=== PATIENT | female | born 1990 | race Caucasian/White ===

== ENCOUNTER → 2020-06-25 13:30 | Outpatient (CLI) | payer OTHER, SELFPAY ==
[2020-06-11 13:01] VITALS: BMI 32.7
[2020-06-25 12:58] VITALS: BMI 33.0
--- NOTE | 2020-06-25 13:30 | US_ITS ---
STUDY: SECOND AND THIRD TRIMESTER OBSTETRICAL ULTRASOUND REASON FOR EXAM: Female, 29 years old growth LMP: 10/12/2019 TECHNIQUE: Transabdominal TECHNICAL QUALITY: Adequate. PRIOR ULTRASOUND: None. FINDINGS: There is a single intrauterine fetus. The fetus is in a cephalic presentation. There is demonstrated cardiac activity with a heart rate of 150 bpm. There is a normal amniotic fluid volume. The largest amniotic fluid pocket measures 4.7 cm. The amniotic fluid index (MIRI) is 4.9 cm. The placenta is anterior in location and is not low lying. There are Grade 3 placental changes. The cervix measures 3 cm in length. The adnexal regions are not visualized. BIOMETRY: BPD: 8.8 cm: 35 weeks, 4 days HC: 31.5 cm: 35 weeks, 2 days AC: 33.1 cm: 36 weeks, 6 days FL: 6.9 cm: 35 weeks, 4 days CI: 83% FL/BPD: 79% FL/HC: FL/AC: 21% HC/AC: 0.95 age by current US: 35 weeks, 3 days. ANNA by current US: 07/27/2020. Estimated weight: 2959 grams, +/- 444 grams, 49 %. Age by LMP: 36 weeks, 5 days. ANNA by LMP: 07/18/2020. US/OB Limited With Biometrics IMPRESSION: Single live intrauterine gestation with a mean gestational age of 35 weeks and 3 days. Electronically Signed: [place] Ravi MD at 14:41 EST , Service support ,
== END ==
PROVIDERS: Referring Provider Obstetrics & Gynecology; Visit Provider Obstetrics & Gynecology
DX: O26.849 Uterine size-date discrepancy, unspecified trimester (principal); Z3A.00 Weeks of gestation of pregnancy not specified
CPT/HCPCS: 76816; 87081

== ENCOUNTER → 2020-07-16 14:15 | Outpatient (CLI) | payer OTHER, SELFPAY ==
[2020-07-09 12:48] VITALS: BMI 33.5
[2020-07-16 13:04] VITALS: BMI 33.8
== END ==
PROVIDERS: Visit Provider Obstetrics & Gynecology
DX: Z34.80 Encounter for supervision of other normal pregnancy, unspecified trimester (principal)
CPT/HCPCS: 87635; C9803; U0002

== ENCOUNTER 2020-07-22 02:47 | Inpatient (IN) | payer OTHER, SELFPAY ==
[2020-07-16 13:04] VITALS: BMI 33.8
[2020-07-22] VITALS (55 sets, daily range): BP systolic 80–140; BP diastolic 51–87; PULSE 69–100; RESP 16; TEMP 36.2–37.7; O2SAT 92–97; BMI 34.9
[2020-07-22] MEDS: Lactated Ringers 1,000 ML 50 ML IV (03:05)
[2020-07-22] MEDS: Lactated Ringers 500 ML 999 ML IV ×2 (03:24→04:50)
[2020-07-22 03:25] LABS: Absolute Lymphocyte Count 2.95 X10^3/uL (0.83-4.51); Absolute Neutrophil Count 6.8 X10^3/uL (2.0-7.7); Basophil# 0.03 X10^3/uL; Basophil% 0.3 % (0-1); Eosinophil# 0.04 X10^3/uL; Eosinophils% 0.4 % (0-5); Hematocrit 36.9 % (37-47); Hemoglobin 12.5 g/dL (12.0-15.0); Lymphocyte # 2.95 X10^3/ul (4.0); Lymphocyte % 27.7 % (19-41); Mean Corp Hgb Conc 33.9 g/dL (32-36); Mean Corpuscular Hgb 30.7 pg (27.0-32.0); Mean Corpuscular Volume 90.7 fL (81-99); Mean Platelet Vol. 9.6 fl (6.2-12.0); Monocyte# 0.81 X10^3/uL; Monocyte% 7.6 % (0-10); NRBC Flagged by Analyzer 0 % (0-5); Neutrophil # 6.76 X10^3/uL (2.7-7.7); Neutrophil % 63.3 % (47-70); Platelet Count 269 K/mm3 (150-450); RBC Distribution Width CV 13.2 % (11.6-14.6); RBC Distribution Width SD 43.8 fl (35.1-43.9); Red Blood Count 4.07 M/mm3 (4.2-5.4); White Blood Count 10.7 K/mm3 (4.4-11.0)
[2020-07-22] MEDS: fentaNYL-bupivacaine (epidural) 100 ML BAG EPIDURAL ×2 (04:29→08:39)
[2020-07-22] MEDS: 0.9% Saline Lock 10 ML Syringe IV ×2 (05:27→16:00)
[2020-07-22] MEDS: Ondansetron 4 MG/2 ML Vial IV ×2 (05:27→12:23)
--- NOTE | 2020-07-22 08:19 | PCM.HPOB.BLA ---
- Problem List (1) Active labor Status: Acute (2) 36 weeks gestation of Status: Acute Comment: electronic covid test 06/23/20- NEGATIVE (3) Current boyer with history of congenital heart disease in prior child, antepartum Status: Acute Comment: h/o hypoplastic left heart- had D&E at 18 weeks; echo done 03/16/2020- normal (4) History of urine culture Status: Acute Comment: done 12/12/19 (5) Influenza vaccination given Status: Acute Comment: 02/17/2020 (6) Needs PAP Status: Acute Comment: PP (7) Normal glucose level Status: Acute Comment: GCT done 03/29/20 value 101 (8) Status: Acute Qualifiers: Comment: Normal- NT; FTS results low risk specifically DSR after screening is 1 in >10,000 and T18/13 risk after screening 1 in >10,000. (9) Supervision of high risk , antepartum Status: Acute Comment: ANNA: 07/18/20 girl Regina Spouse: Hermelindo History and Physical Date of Admission: 07/22/20 Intake Vital Signs 07/16/20 Height 5 ft 2 in 07/16/20 Weight: 185 lb 07/16/20 BMI 33.8 07/16/20 BP 120/82 H Intake Visit Reasons: 39WK OB Chief Complaint: est ob [employer] Hel[employer] Required: No Is patient in pain?: No Allergies sulfamethoxazole [From Bactrim] Allergy (Intermediate, Verified 07/16/20 13:05) Hives trimethoprim [From Bactrim] Allergy (Intermediate, Verified 07/16/20 13:05) Hives Medications multivitamin no.47-iron fum 27 mg-folate no.1 1 mg-dha 300 mg capsule cap PO 04/07/20 [History Confirmed 07/16/20] Last Menstral Period: 10/12/19 Zika: Zika virus screening: Negative : No PFSH PFSH Surgical History H/O reconstruction of anterior cruciate ligament tear (Resolved ~2007) H/O wisdom tooth extraction (Resolved ~2008) Family History Grandfather Cancer Bone Heart disease Myocardial infarction Brother ADHD Mother Narcolepsy Grandmother COPD (chronic obstructive pulmonary disease) Social History (Updated 07/16/20 @ 15:[address] Mell Blackmon MD) Smoking Status: Never smoker alcohol intake: current alcohol intake frequency: holidays/special occasions only details: not while substance use type: does not use additional social history: - Hermelindo Pregancy History 2 Elective abortions 1 Hx Para Spontaneous abortions Hx # Term Pregnancies Ectopic pregnancies Hx # Pregnancies Multiple births # of living children Past Pregnancies Del. 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 OB Visit ANNA Calculator Estimated Delivery Date Method Current WG Current Estimate 07/18/20 LMP (Certain) 39w 5d Other Estimates 07/18/20 Manual 39w 5d Expected Delivery Route/Plan Labor Preferences CB/BF classes: declines labor support person: Hermelindo labor intervention preferences: no preference pain management options preferred: epidural cut cord/dad catch: yes : yes PP control planned: discussed possible routes of delivery and associated risks: discussed possible delivery modalities and possible indications for each including R/B/A of , VAVD, and CS. questions answered. special requests: [] Specific Issue/Plans flu vaccine: given in [facility] tdap vaccine: given 04/28 rhogam: na LARC form signed: 05/14 movement and labor precautions reviewed. Problem list reviewed and updated with the most current plan of care details and appropriate orders placed. Relevant counseling for the gestational age provided. 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 [employer]. His family is here that's why they moved here to [place]. no vb lof good fm no regular ctx, has had echo and it's normal. nl cbc gct at 28 weeks per patient. 05/14/20 30w 5d 171 lb 4 oz 124/72 145 30 GP - no LOF, VB, DFM, ctx. LARC form signed today. 05/28/20 32w 5d 124/70 Negative Negative 145 34 SM- no vb lof good fm no regular ctx 06/11/20 34w 5d 179 lb 120/78 Negative Negative 145 36 GP - no LOF, VB, DFM, regular ctx. going to be out of town for next 2 weeks - has contingency plan in case goes into labor. Measuring 2 weeks ahead. Plan growth US. 06/25/20 36w 5d 181 lb 138/88 Negative Negative 130 37 Cephalic 1 20 -4 SM- no vb lof good fm no regular ctx 07/02/20 37w 5d 185 lb 4 oz 138/82 Negative Negative 125 38 Cephalic 1 60 -2 GP - no LOF, VB, DFM, ctx. Denies complaints. 07/09/20 38w 5d 183 lb 6 oz 132/80 Negative Negative 140 39 Cephalic 3 70 -2 GP - no LOF, VB, DFM, ctx. Scheduled for COVID vaccine next week. Membranes swept today. 07/16/20 39w 5d 185 lb 120/82 140 40 Cephalic 3 0 -2 SM- no vb lof good fm no regular ctx discussed IOL with pitocin Diagnostics Diagnostics Details: HIV: Urine Culture: Sequential Screen: NIPT Screen: ROS Const Reports system reviewed and no additional complaints, except as docu Card Reports system reviewed and no additional complaints, except as docu Resp Reports system reviewed and no additional complaints, except as docu GI Reports system reviewed and no additional complaints, except as docu, Reports nausea Reports system reviewed and no additional complaints, except as docu Musc Reports system reviewed and no additional complaints, except as docu Exam Const General: cooperative, healthy appearing, comfortable, anxious [facility] Head: normal to inspection Nose: external nose normal Face and sinus: normal facial exam Neck Neck: normal visual inspection, full ROM, no lymphadenopathy Thyroid: thyroid normal Chest Chest palpation & inspection: normal inspection of the chest Resp Effort & Inspection: normal respiratory effort GI Inspection: normal to inspection Palpation: soft, other (gravid uterus) Other: infant vertex and appropriate size for gestational age Other: Cervical Exam: Extrem General: pedal edema Patient presents IAL, plan expectant management for , pitocin/AROM PRN if needed. Pain management: plans epidural. GBS negative. Management of any complications: none I have reviewed the [facility] and made any clinically relevant updates. UPDATE- I have seen the patient and performed any clinically relevant updates to the history and physical exam. Ines Fox MD
[2020-07-22] MEDS: Lactated Ringers 1,000 ML 200 ML IV ×2 (09:54)
[2020-07-22] MEDS: Oxytocin 30 units/NS 500 ml 30 UNITS/500 ML IV.SOLN 334 UNITS IV (13:31)
[2020-07-22] MEDS: Methylergonovine 0.2 MG/ML Ampul IM (13:37)
--- NOTE | 2020-07-22 15:09 | OP.PCM_ITS ---
Problem List (1) Active labor Status: Acute (2) 36 weeks gestation of Status: Acute Comment: electronic covid test 06/23/20- NEGATIVE (3) Current boyer with history of congenital heart disease in prior child, antepartum Status: Acute Comment: h/o hypoplastic left heart- had D&E at 18 weeks; echo done 03/16/2020- normal (4) History of urine culture Status: Acute Comment: done 12/12/19 (5) Influenza vaccination given Status: Acute Comment: 02/17/2020 (6) Needs PAP Status: Acute Comment: PP (7) Normal glucose level Status: Acute Comment: GCT done 03/29/20 value 101 (8) Status: Acute Qualifiers: Comment: Normal- NT; FTS results low risk specifically DSR after screening is 1 in >10,000 and T18/13 risk after screening 1 in >10,000. (9) Supervision of high risk , antepartum Status: Acute Comment: ANNA: 07/18/20 tiffanie Tapia Spouse: Hermelindo Vaginal Delivery Maternal Presentation: Active Labor 29yo at 40 weeks gestation admitted for active labor. Patient made cervical change to complete dilation without augmentation Amniotic Membrane Rupture Type: Artificial Amniotic Fluid Description: Clear Final ANNA: 07/18/20 Gestational age: 40 Weeks and 4 Days Date of Procedure: 07/22/20 Pre-Operative Diagnosis: Term , active labor Post-Operative Diagnosis: same Surgery/ Procedure Performed: Spontaneous Vaginal Delivery Type of Anesthesia: Epidural Description of Procedure: Patient began pushing and delivered the head in the ANA M presentation. The head was delivered atraumatically and no nuchal cord was noted. The anterior and posterior shoulders delivered without complication followed by the rest of the i nfant and the infant was placed on the maternal abdomen. Delayed cord clamping was employed for approximately 60 seconds. Cord was clamped and cut and gentle traction was applied to the cord and the placenta delivered spontaneously immediately following it was noted to be intact with three-vessel cord. The perineum and vagina were inspected and a midline second degree laceration was noted and repaired in the standard fashion using 3-0 vicryl rapide suture. Uterine atony was noted and improved with bimanual massage and methergine. EBL was 300 cc. Patient and infant tolerated delivery well. Presentation: Vertex, ANA M Placental Delivery Description: Spontaneous Placenta Disposition: [facility] Cord Vessel Description: 3 Vessels Cord Entanglement: None Estimated Blood Loss: 300 Infant A gender: Female (1 minute): 8 (5 minute): 9 Episiotomy Description: None Laceration: Left Mediolateral, Perineal Extension/lac, 2nd degree Medications given after delivery: IV Pitocin, IM Methergin Complications: None Multi Select Codes - Urinary/Genital Urinary/Genital CPT Codes: 10036 [facility]
--- NOTE | 2020-07-22 15:13 | DCINST_ITS ---
Discharge Diet: No Restrictions Discharge Activity: Return to Normal Activity, May not drive while taking narcotic pain medications., May Shower May resume sexual activity in: 4-6 weeks Additional Activity Instructions:: Nothing in the vagina for 4-6 weeks. You may return to work/school in 6 weeks. Call your doctor if your incision/area has: Continuous Slow Oozing, Sudden Increased Bleeding, Increased Pain/ Swelling, Increased Redness, Foul Smelling Discharge Additional Instructions: If you experience any of the following, contact your healthcare provider. * Bleeding that soaks a pad every hour for 2 hours * Fever 100.4 or higher * Unrelieved incision or abdominal pain * Swelling, redness, discharge or bleeding from your incision or episiotomy site * Your incision begins to separate * Problems urinating (including inability to urinate or burning while urinating). * Visual changes * Severe headache * Flu-like symptoms * Pain or redness in one of both of your breasts * Pain, warmth, tenderness or swelling in your legs, especially the calf area * Frequent nausea and vomiting * Symptoms of depression or anxiety If you experience any of the following, call 911 or go to the nearest Emergency Room. * Chest pain * Problems breathing * Seizure activity * Partial or complete paralysis of a body part, slurred speech, weakness or drooping of the face, or a sudden inability to walk or hold your balance Allergies/Adverse Reactions: Allergies sulfamethoxazole [From Bactrim] Allergy (Intermediate, Verified 07/22/20 00:56) Hives trimethoprim [From Bactrim] Allergy (Intermediate, Verified 07/22/20 00:56) Hives Medications to take at Discharge multivitamin no.47-iron fum 27 mg-folate no.1 1 mg-dha 300 mg capsule 1 cap PO DAILY 04/07/20 When: Call to make an appointment with your doctor in 6 weeks. If you had elevated Blood Pressure or 4th degree laceration you will need to be seen in 2 weeks. Primary Care Physician: Care Physician,No Primary [Primary Care Provider] - Test Results: Test results from this visit will be discussed in further detail at your follow- up appointment, if applicable.
[2020-07-22] MEDS: Naproxen 250 MG Tablet 500 MG PO (15:48)
[2020-07-22] MEDS: Senna/Docusate Sodium 1 Tablet PO (15:49)
[2020-07-22] MEDS: Acetaminophen 500 MG Tablet 1000 MG PO (23:14)
[2020-07-23] VITALS (8 sets, daily range): BP systolic 105–120; BP diastolic 62–66; PULSE 72–81; RESP 16; TEMP 36.2–36.6; O2SAT 97
[2020-07-23] MEDS: Naproxen 250 MG Tablet 500 MG PO ×2 (00:43→08:19)
--- NOTE | 2020-07-23 08:18 | PCM.PN.OB ---
Patient Problems: Active and Suspected Problems (Last Reviewed 07/16/20 @ 13:05 by Adelaide Alan) Active labor (Acute) 36 weeks gestation of (Acute) electronic covid test 06/23/20- NEGATIVE Needs PAP (Acute) PP History of urine culture (Acute) done 12/12/19 Normal glucose level (Acute) GCT done 03/29/20 value 101 Influenza vaccination given (Acute) 02/17/2020 Supervision of high risk , antepartum (Acute) ANNA: 07/18/20 girl Regina Spouse: Hermelindo (Acute) Normal- NT; FTS results low risk specifically DSR after screening is 1 in >10,000 and T18/13 risk after screening 1 in >10,000. Current boyer with history of congenital heart disease in prior child, antepartum (Acute ~07/2019) h/o hypoplastic left heart- had D&E at 18 weeks; echo done 03/16/2020- normal Subjective: Patient doing well without complaints. Tolerating PO. Ambulating and voiding without difficulty. Breast feeding well. Denies chest pain, shortness of breath, calf pain/swelling, fevers, chills, lightheadedness. - Physical Exam Vitals/I&O's: Vital Signs Temp Pulse Resp BP Pulse Ox 97.5 F L 73 16 105/62 97 07/23/20 08:15 07/23/20 08:15 07/23/20 08:15 07/23/20 08:15 07/23/20 08:15 Oxygen Delivery Method Room Air Weight: 185 lb 3.2 oz Body Mass Index (BMI) 34.9 Intake and Output for Last 24 Hours 07/21/20 07/22/20 07/23/20 23:59 23:59 23:59 Intake Total 4423.33 / 4423.33 Output Total 2775 / 2775 Balance 1648.33 / 1648.33 General: Alert, Oriented x3, Cooperative, No apparent distress, Well developed, Well nourished HEENT: Atraumatic, PERRLA, EOMI, Normocephalic Neck: Supple, No JVD Lungs: Normal air movement Cardiovascular: Regular rate Abdomen: Soft, Non Tender, Non-Distended, - - fundus firm Extremities: No edema, No Calf Tenderness Neurological: Cranial nerves II-XII grossly intact, Neuro grossly intact Psych/Mental Status: Normal Affect, Appropriate Current Medications Acetaminophen (Acetaminophen 500 Mg Tablet) 1,000 mg PO Q8H PRN PRN PRN Reason: Pain Score 1-3 Last Admin: 07/22/20 23:14 Dose: 1,000 mg Documented by: Bisacodyl (Bisacodyl 10 Mg Suppository) 10 mg RC UD PRN PRN Reason: If no BM Dibucaine (Dibucaine 30 Gm Tube) 1 applic TOPICAL TID PRN PRN; Protocol PRN Reason: Discomfort Hydrocortisone (Hydrocortisone 2.5% Crm) 1 applic TOPICAL TID PRN PRN; Protocol PRN Reason: Discomfort Methylergonovine Maleate (Methylergonovine 0.2 Mg/Ml Ampul) 0.2 mg IM X1 PRN PRN Reason: Excess bleeding/uterine atony Last Admin: 07/22/20 13:37 Dose: 0.2 mg Documented by: Naproxen (Naproxen 250 Mg Tablet) 500 mg PO Q8H PRN PRN PRN Reason: Pain Score 1-3 Last Admin: 07/23/20 00:43 Dose: 500 mg Documented by: Ondansetron HCl (Ondansetron 4 Mg/2 Ml Vial) 4 mg IV Q4H PRN PRN PRN Reason: Nausea Oxycodone HCl (Oxycodone 5 Mg Tablet) 5 - 10 mg PO Q4H PRN PRN PRN Reason: Pain Score 4-10 Senna/Docusate Sodium (Senna/Docusate Sodium 1 Tablet) 1 - 2 tablet PO DAILY PRN PRN PRN Reason: Constipation Last Admin: 07/22/20 15:49 Dose: 2 tablet Documented by: Simethicone (Simethicone 80 Mg Tablet) 80 mg PO PCHS PRN PRN Reason: Indigestion/Stomach pain Sodium Chloride (0.9% Saline Lock 10 Ml Syringe) 5 - 15 ml IV UD PRN PRN Reason: SALINE FLUSH Last Admin: 07/22/20 16:00 Dose: 10 ml Documented by: Medical Necessity - Tobacco Use Smoking Status: Never smoker Assessment/Plan All Active Problems (Last Reviewed 07/16/20 @ 13:05 by Adelaide Alan) Active labor (Acute) 36 weeks gestation of (Acute) Needs PAP (Acute) History of urine culture (Acute) Normal glucose level (Acute) Influenza vaccination given (Acute) Supervision of high risk , antepartum (Acute) (Acute) Current boyer with history of congenital heart disease in prior child, antepartum (Acute ~07/2019) s/p PPD #1 1. routine post delivery care 2. breast feeding- support given 3. rh positive 4. rubella immune
[2020-07-23] MEDS: Senna/Docusate Sodium 1 Tablet PO (08:20)
[2020-07-23] MEDS: Acetaminophen 500 MG Tablet 1000 MG PO (13:55)
== END 2020-07-23 16:05 | disposition home or self-care (01) | DRG 807 ==
LOC: OBT 02:49 → WP 02:49
PROVIDERS: Admitting Provider Obstetrics & Gynecology; Referring Provider Obstetrics & Gynecology; Visit Provider Obstetrics & Gynecology
DX: O70.1 Second degree perineal laceration during delivery (principal); O75.89 Other specified complications of labor and delivery; Z3A.40 40 weeks gestation of pregnancy; Z37.0 Single live birth
CPT/HCPCS: 59025; 59050; 85025; 86850; 86900; 86901; 99218; J7120; A4216; G0378; J2405

== ENCOUNTER → 2020-09-03 15:30 | Outpatient (CLI) | payer OTHER, SELFPAY ==
[2020-09-03 13:57] VITALS: BMI 34.9
[2020-09-10 20:20] LABS: HPV Reflexed? NOT INDICATED
== END ==
PROVIDERS: Referring Provider Obstetrics & Gynecology; Visit Provider Obstetrics & Gynecology
DX: Z12.4 Encounter for screening for malignant neoplasm of cervix (principal)
CPT/HCPCS: 88175; G0145

== ENCOUNTER 2021-05-24 16:32 | Outpatient (CLI) | payer OTHER, SELFPAY ==
[2021-05-24 18:35] LABS: Amphetamine Urine VISTA NEGATIVE (<1000 ng/mL); Barbiturate Urine VISTA NEGATIVE (< 200 ng/mL); Benzodiazepine Urine VISTA NEGATIVE (< 200 ng/mL); Cocaine Urine VISTA NEGATIVE (< 300 ng/mL); Ecstacy Urine VISTA NEGATIVE (< 500 ng/mL); Methadone Urine VISTA NEGATIVE (< 300 ng/mL); PCP Urine VISTA NEGATIVE (< 25 ng/mL); THC Urine VISTA NEGATIVE (< 50 ng/mL); Vista UDS pH Range 5
[2021-05-27 06:11] LABS: Chlamydia By Nucleic Acid AMP Negative (Negative)
[2021-05-27 10:01] LABS: Gonococcus By Nucleic Acid AMP Negative (Negative)
== END 2021-05-24 23:59 | disposition short-term general hospital (02) ==
LOC: LABSPEC 16:34
PROVIDERS: Visit Provider Obstetrics & Gynecology
DX: Z34.90 Encounter for supervision of normal pregnancy, unspecified, unspecified trimester (principal)
CPT/HCPCS: 80307; 87086; 87088; 87491; 87591

== ENCOUNTER 2021-06-06 12:14 | Outpatient (CLI) | payer OTHER, SELFPAY ==
[2021-06-06 13:22] LABS: NATERA MAILED SPECIMEN
[2021-06-06 13:54] LABS: Absolute Lymphocyte Count 2.08 X10^3/uL (0.83-4.51); Absolute Neutrophil Count 6.2 X10^3/uL (2.0-7.7); Basophil# 0.03 X10^3/uL; Basophil% 0.3 % (0-1); Eosinophil# 0.06 X10^3/uL; Eosinophils% 0.7 % (0-5); Hematocrit 36.6 % (37-47); Hemoglobin 12.5 g/dL (12.0-15.0); Lymphocyte # 2.08 X10^3/ul (0.83-4.51); Lymphocyte % 23.2 % (19-41); Mean Corp Hgb Conc 34.2 g/dL (32-36); Mean Corpuscular Hgb 29.5 pg (27.0-32.0); Mean Corpuscular Volume 86.3 fL (81-99); Mean Platelet Vol. 9.1 fl (6.2-12.0); Monocyte# 0.62 X10^3/uL; Monocyte% 6.9 % (0-10); NRBC Flagged by Analyzer 0 % (0-5); Neutrophil # 6.17 X10^3/uL (2.7-7.7); Neutrophil % 68.7 % (47-70); Platelet Count 318 K/mm3 (150-450); RBC Distribution Width CV 13.4 % (11.6-14.6); Red Blood Count 4.24 M/mm3 (4.2-5.4)
[2021-06-06 15:20] LABS: HIV - WCH Non-Reactive (Nonreactive); Hepatitis B Surface Antigen Non-Reactive (Nonreactive); Hepatitis C Antibody Non-Reactive (Nonreactive); Rubella IgG Reactive (Nonreactive); Syphilis Antibodies Non-reactive
== END 2021-06-06 23:59 | disposition short-term general hospital (02) ==
LOC: LAB 12:17
PROVIDERS: Referring Provider Obstetrics & Gynecology; Visit Provider Obstetrics & Gynecology
DX: Z34.81 Encounter for supervision of other normal pregnancy, first trimester (principal)
CPT/HCPCS: 36415; 85025; 86703; 86762; 86780; 86803; 86850; 86900; 86901; 87340

== ENCOUNTER 2021-06-11 18:44 | Emergency (ER) | payer OTHER, SELFPAY ==
[2021-06-11 18:46] VITALS: BP 125/95; PULSE 101; RESP 18; TEMP 36.8; O2SAT 99; BMI 29.2
--- NOTE | 2021-06-11 19:05 | EDS_ITS ---
HPI HPI - GI History of Present Illness Chief Complaint: Nausea/Vomiting Informant: patient Abdominal Pain/Flank Pain Onset: Today Context: Gradual Onset Timing: Continuous Quality: Cramping Location: Diffuse Worsened by: Nothing Relieved by: Nothing Nausea/Vomiting/Emesis GI Symptom: Positive for Nausea and Vomiting Onset: Today Quality: Negative for Blood streaks, Coffee ground and Hematemesis Diarrhea/Melena/Hematochezia GI Symptom: Negative for Diarrhea, Melena and Hematochezia Associated Symptoms Associated Symptoms: Negative for Dysuria, Frequency and Hematuria Narrative Narrative: Patient presents with nausea and vomiting that began today. Patient states she has been unable to keep anything down including water. Patient is 11 weeks . Patient is 3 para 1 with 1 stillborn. Patient admits to some diffuse abdominal pain that began after the vomiting. Patient describes it as cramping. Patient states it has been constant. Patient states her pain is diffuse across her abdomen. Patient denies any dysuria, frequency, or hematuria. Patient admits to some pain in her neck and back from the vomiting. PFSH PFSH Medical History no medical history no medical history Home Medications multivitamin no.47-iron fum 27 mg-folate no.1 1 mg-dha 300 mg capsule 1 cap PO DAILY 04/07/20 [History Last Taken 07/22/20] doxylamine-pyridoxine (vit B6) [Diclegis] 0.5 tab PO TID PRN 06/11/21 [History Last Taken Unknown] ondansetron 4 mg PO Q8H PRN PRN #10 tab 06/11/21 [Rx Last Taken Unknown] Allergy/AdvReac Type Severity Reaction Status Date / Time sulfamethoxazole Allergy Intermediate Hives Verified 06/11/21 18:48 [From Bactrim] trimethoprim [From Bactrim] Allergy Intermediate Hives Verified 06/11/21 18:48 Family History Grandfather Cancer Bone Heart disease Myocardial infarction Brother ADHD Mother Narcolepsy Grandmother COPD (chronic obstructive pulmonary disease) Surgical History H/O reconstruction of anterior cruciate ligament tear (~2007) H/O wisdom tooth extraction (~2008) History of repair of ACL Social History household members: family housing: house number of children: 1 Smoking Status: Never smoker second hand exposure: No alcohol intake: current alcohol intake frequency: holidays/special occasions only details: not while substance use type: does not use seatbelt use: always do you feel safe at home: Yes additional social history: - [facility] ED Constitutional Constitutional ED: Reports chills; Denies fever(s) Eyes Eyes: Denies blurry vision or change in vision ENT ENT ED: Reports rhinorrhea; Denies sore throat Cardiovascular Cardiovascular: Denies chest pain or palpitations Respiratory/Chest Respiratory/Chest: Denies cough or dyspnea Gastrointestinal Gastrointestinal: Reports abdominal pain, nausea and vomiting; Denies diarrhea or melena Genitourinary Genitourinary ED: Denies dysuria or hematuria Musculoskeletal Musculoskeletal: Reports back pain and neck pain Integumentary Denies abscess or rash Neurologic Neurologic: Denies headache(s) or weakness Allergic/Immunologic Allergic/Immunologic ED: Denies mouth swelling or urticaria EXAM Physical Exam Const Vital Signs: 06/11/21 18:46 Temperature 98.2 F Temperature Source Temporal Pulse Rate 101 H Respiratory Rate 18 Blood Pressure 125/95 H Blood Pressure Mean 105 Pulse Ox 99 Oxygen Delivery Method Room Air Positive well nourished and well developed General Appearance ED: well developed HEENT Reports moist mucous membranes Neck supple and no JVD Resp normal respiratory effort and clear to auscultation bilaterally Cardio regular rate, regular rhythm and no murmurs GI normal to inspection, nondistended, normoactive bowel sounds and non-distended Auscultation: normoactive bowel sounds Palpation: soft and tender other (There is mild diffuse tenderness.); Negative for guarding or rebound tenderness present Extremity normal to inspection General Extremety ED: Negative for edema or tenderness General Extremity: Negative for edema Neuro oriented x3, CN's II-XII intact bilaterally and no sensory deficits noted Sensorium / Orientation: alert Motor Exam: strength 5/5 throughout Psych mental status grossly normal Skin no rashes or lesions noted MDM MDM MDM Narrative Medical decision making narrative: Patient was given IV fluids and Zofran. CBC shows a leukocytosis of 19.5. This is most likely related to the . Comprehensive metabolic profile was within normal limits. Quantitative hCG was [address]. Urinalysis does not show any evidence of urinary tract infection. [id number] ultrasound was obtained. There is good cardiac activity noted. There is a single intrauterine noted. Patient was reassured. Patient was given a prescription for Zofran. Patient was instructed to follow- up with her [employer] in 3 to 5 days. Patient understood and was agreeable with the plan. All questions were answered. Lab Data Attestation: I reviewed the patient's lab results. Labs: Laboratory Results - last 24 hr 06/11/21 06/11/21 06/11/21 19:25 19:25 19:25 WBC 19.5 H RBC 4.74 Hgb 14.2 Hct 40.9 MCV 86.3 MCH 30.0 MCHC 34.7 RDW Std Deviation 40.4 RDW Coeff of Sara 12.9 Plt Count 371 MPV 8.8 Immature Gran % (Auto) 0.400 Neut % (Auto) 88.7 H Lymph % (Auto) 6.8 L [place] % (Auto) 3.8 Eos % (Auto) 0.1 Baso % (Auto) 0.2 Absolute Neuts (auto) 17.3 H Absolute Lymphs (auto) 1.32 Nucleated RBC % 0 Sodium 135 L Potassium 3.7 Chloride 104 Carbon Dioxide 22.0 Anion Gap 9 BUN 14 Creatinine 0.68 Estim Creat Clear Calc 96.55 Est GFR (MDRD) Af Amer 132 Est GFR (MDRD) Non-Af 109 BUN/Creatinine Ratio 20.7 H Glucose 112 H Calcium 9.3 Total Bilirubin 0.60 AST 12 L ALT 15 Alkaline Phosphatase 74 Total Protein 8.4 H Albumin 3.8 Globulin 4.6 H Albumin/Globulin Ratio 0.8 L HCG, Quant 99478 H Urine Color Urine Clarity Urine pH Ur Specific [place] Urine Protein Urine Glucose (UA) Urine Ketones Urine Occult Blood Urine Nitrite Urine Bilirubin Urine Urobilinogen Ur Leukocyte Esterase Urine RBC Urine WBC Ur Squamous Epith Cells Urine Bacteria Urine Mucus 06/11/21 19:50 WBC RBC Hgb Hct MCV MCH MCHC RDW Std Deviation RDW Coeff of Sara Plt Count MPV Immature Gran % (Auto) Neut % (Auto) Lymph % (Auto) [place] % (Auto) Eos % (Auto) Baso % (Auto) Absolute Neuts (auto) Absolute Lymphs (auto) Nucleated RBC % Sodium Potassium Chloride Carbon Dioxide Anion Gap BUN Creatinine Estim Creat Clear Calc Est GFR (MDRD) Af Amer Est GFR (MDRD) Non-Af BUN/Creatinine Ratio Glucose Calcium Total Bilirubin AST ALT Alkaline Phosphatase Total Protein Albumin Globulin Albumin/Globulin Ratio HCG, Quant Urine Color Yellow Urine Clarity Cloudy Urine pH 5.0 Ur Specific [place] 1.025 Urine Protein 30 H Urine Glucose (UA) Normal Urine Ketones 150 A* Urine Occult Blood 10 H Urine Nitrite Negative Urine Bilirubin Negative Urine Urobilinogen Normal Ur Leukocyte Esterase 100 H Urine RBC 0-5 SEEN Urine WBC 0-5 SEEN Ur Squamous Epith Cells 5-10 SEEN Urine Bacteria 2+ Urine Mucus 1+ Discharge Plan Triage Chief Complaint: Nausea/Vomiting ED Provider: Pilo Bustillo Dx/Rx/DC Orders Clinical Impression: Nausea and vomiting during , Instructions: ED Vomiting (Adult) Prescriptions: New ondansetron [ondansetron] 4 MG tablet 4 mg PO Q8H PRN PRN (Reason: Nausea) Qty: 10 RF: 0 No Action PNV-DHA 27 mg iron-1 mg -300 mg capsule 1 cap PO DAILY RF: 0 doxylamine-pyridoxine (vit B6) [Diclegis] 10-10 mg tablet,delayed release (DR/EC) 0.5 tab PO TID PRN (Reason: nausea) RF: 0 Primary Care Provider: Care Physician,No Primary Referrals: Natalie Delgado DO [STAFF PHYSICIAN] - 3-5 Days Care Physician,No Primary [Primary Care Provider] - Disposition Disposition: Home, Self Care
[2021-06-11] MEDS: 0.9% Normal Saline 1,000 ML 1000 ML IV (19:23)
[2021-06-11] MEDS: Ondansetron 4 MG/2 ML Vial IV ×2 (19:23→21:22)
[2021-06-11 20:13] LABS: Color, Urine Yellow (Yellow); Glucose, Dipstick Normal (Normal); Leukocyte Esterase-Dipstick 100 /ul (Negative); Nitrite-Dipstick Negative (Negative); Occult Blood-Urine 10 /ul (Negative); Protein-Dipstick 30 mg/dl (Negative); Specific Gravity, Urine 1.025 (1.002-1.030); Urine Bilirubin Dipstick Negative (Negative); Urine Clarity Cloudy (Clear); Urine Urobilinogen Normal (Normal)
[2021-06-11 20:14] LABS: Ketone-Dipstick 150 mg/dl (Negative)
[2021-06-11 20:14] LABS: Absolute Lymphocyte Count 1.32 X10^3/uL (0.83-4.51); Absolute Neutrophil Count 17.3 X10^3/uL (2.0-7.7); Basophil# 0.03 X10^3/uL; Basophil% 0.2 % (0-1); Eosinophil# 0.01 X10^3/uL; Eosinophils% 0.1 % (0-5); Hematocrit 40.9 % (37-47); Hemoglobin 14.2 g/dL (12.0-15.0); Lymphocyte # 1.32 X10^3/ul (0.83-4.51); Lymphocyte % 6.8 % (19-41); Mean Corp Hgb Conc 34.7 g/dL (32-36); Mean Corpuscular Volume 86.3 fL (81-99); Mean Platelet Vol. 8.8 fl (6.2-12.0); Monocyte# 0.74 X10^3/uL; Monocyte% 3.8 % (0-10); NRBC Flagged by Analyzer 0 % (0-5); Neutrophil # 17.34 X10^3/uL (2.7-7.7); Neutrophil % 88.7 % (47-70); Platelet Count 371 K/mm3 (150-450); RBC Distribution Width CV 12.9 % (11.6-14.6); RBC Distribution Width SD 40.4 fl (35.1-43.9); Red Blood Count 4.74 M/mm3 (4.2-5.4); White Blood Count 19.5 K/mm3 (4.4-11.0)
[2021-06-11 20:30] LABS: ALB/GLOB Ratio 0.8 RATIO (0.9-2.4); AST(SGOT) 12 U/L (15-37); Alanine Aminotransfer ALT/SGPT 15 U/L (13-56); Albumin, Serum 3.8 g/dL (3.2-5.0); Alkaline Phosphatase 74 U/L (45-117); Anion Gap 9 (5-15); BUN 14 mg/dL (7-18); BUN/Creat Ratio 20.7 RATIO (10-20); Calcium,Total 9.3 mg/dL (8.5-10.1); Chloride 104 mmol/L (98-107); Creatinine, Serum 0.68 mg/dL (0.55-1.02); EST Glomerular Filtration Rate 109 mL/min (>60); Est Glom Filt Rate - Afr Amer 132 mL/min (>60); Estimated Creatinine Clearance 96.55 ml/min; Globulin 4.6 g/dL (2.2-4.2); Glucose 112 mg/dL (74-106); Potassium 3.7 mmol/L (3.5-5.1); Protein, Total 8.4 g/dL (6.4-8.2); Sodium Level 135 mmol/L (136-145)
[2021-06-11 20:32] LABS: Red Blood Cells-Urine 0-5 SEEN /hpf (0-5); Squamous Epithelial Cells - UA 5-10 SEEN /hpf (5-10); White Blood Cells 0-5 SEEN /hpf (0-5)
[2021-06-11 20:33] LABS: Bacteria 2+ /hpf (None Seen); Mucous, Urine 1+ /hpf (<or=2+)
[2021-06-11 21:36] VITALS: BP 115/78; PULSE 93; RESP 15; O2SAT 96
== END 2021-06-11 21:37 | disposition home or self-care (01) ==
PROVIDERS: Emergency Provider Emergency Medicine; Visit Provider Emergency Medicine
DX: O21.0 Mild hyperemesis gravidarum (principal); R10.84 Generalized abdominal pain; M54.9 Dorsalgia, unspecified; M54.2 Cervicalgia; D72.829 Elevated white blood cell count, unspecified; Z3A.11 11 weeks gestation of pregnancy
CPT/HCPCS: 80053; 81001; 84702; 85025; 96361; 96374; 96376; 99282; J7030; A4216; J2405

== ENCOUNTER → 2021-10-07 | Outpatient (CLI) | payer OTHER, SELFPAY ==
[2021-10-07 14:25] LABS: Absolute Lymphocyte Count 2.02 X10^3/uL (0.83-4.51); Absolute Neutrophil Count 7.4 X10^3/uL (2.0-7.7); Basophil# 0.03 X10^3/uL; Basophil% 0.3 % (0-1); Eosinophil# 0.07 X10^3/uL; Eosinophils% 0.7 % (0-5); Hematocrit 34.7 % (37-47); Hemoglobin 11.1 g/dL (12.0-15.0); Lymphocyte # 2.02 X10^3/ul (0.83-4.51); Lymphocyte % 19.8 % (19-41); Mean Corpuscular Hgb 29.1 pg (27.0-32.0); Mean Corpuscular Volume 91.1 fL (81-99); Mean Platelet Vol. 9.1 fl (6.2-12.0); Monocyte# 0.66 X10^3/uL; Monocyte% 6.5 % (0-10); NRBC Flagged by Analyzer 0 % (0-5); Neutrophil # 7.35 X10^3/uL (2.7-7.7); Neutrophil % 71.9 % (47-70); Platelet Count 300 K/mm3 (150-450); RBC Distribution Width CV 13.2 % (11.6-14.6); RBC Distribution Width SD 43.7 fl (35.1-43.9); Red Blood Count 3.81 M/mm3 (4.2-5.4); White Blood Count 10.2 K/mm3 (4.4-11.0)
[2021-10-07 14:59] LABS: Glucose Challenge Gest 1H 50g 99 mg/dL (70-140)
== END | disposition home or self-care (01) ==
LOC: LAB 13:35
PROVIDERS: Referring Provider Nurse Practitioner Women's Health; Visit Provider Nurse Practitioner Women's Health
DX: Z34.90 Encounter for supervision of normal pregnancy, unspecified, unspecified trimester (principal); Z3A.20 20 weeks gestation of pregnancy
CPT/HCPCS: 82950; 85025

== ENCOUNTER → 2021-12-09 | Outpatient (CLI) | payer OTHER, SELFPAY | END | disposition home or self-care (01) | LOC: LABSPEC 12-12 10:03 | PROVIDERS: Visit Provider Obstetrics & Gynecology | DX: O09.90 Supervision of high risk pregnancy, unspecified, unspecified trimester (principal) | CPT/HCPCS: 87081 ==

== ENCOUNTER 2021-12-16 14:53 | Outpatient (CLI) | payer OTHER, SELFPAY ==
[2021-12-16 14:57] VITALS: BMI 34.0
--- NOTE | 2021-12-16 14:59 | EKG12_ITS ---
Test Reason : palps Blood Pressure : / mmHG Vent. Rate : 097 BPM Atrial Rate : 097 BPM P-R Int : 100 ms QRS Dur : 074 ms QT Int : 318 ms P-R-T Axes : 027 041 001 degrees QTc Int : 403 ms Sinus rhythm with short [place] Nonspecific T wave abnormality Abnormal ECG No previous ECGs available Confirmed by MILAN FUENTES, ARON ([id number]), assignment desk editor IRAIS HOOVER ([id number]) on 12/19/2021 2:05:57 PM Referred By: Mell Blackmon Confirmed By:ARON YATES MD
[2021-12-16 15:17] VITALS: BP 122/83; PULSE 103; O2SAT 94
[2021-12-16] MEDS: Lactated Ringers 1,000 ML 999 ML IV (15:31)
[2021-12-16 15:59] LABS: Color, Urine Yellow (Yellow); Glucose, Dipstick Normal (Normal); Ketone-Dipstick Negative (Negative); Leukocyte Esterase-Dipstick 25 /ul (Negative); Nitrite-Dipstick Negative (Negative); Occult Blood-Urine Negative /ul (Negative); Protein-Dipstick 15 mg/dl (Negative); Urine Bilirubin Dipstick Negative (Negative); Urine Clarity Clear (Clear); Urine Urobilinogen Normal (Normal); Urine pH 6.5 (5.0 - 8.0)
[2021-12-16 16:06] LABS: Absolute Lymphocyte Count 1.41 X10^3/uL (0.83-4.51); Absolute Neutrophil Count 11.4 X10^3/uL (2.0-7.7); Basophil# 0.03 X10^3/uL; Basophil% 0.2 % (0-1); Eosinophil# 0.02 X10^3/uL; Eosinophils% 0.1 % (0-5); Hematocrit 36.5 % (37-47); Hemoglobin 11.8 g/dL (12.0-15.0); Lymphocyte # 1.41 X10^3/ul (0.83-4.51); Lymphocyte % 10.4 % (19-41); Mean Corp Hgb Conc 32.3 g/dL (32-36); Mean Corpuscular Hgb 29.2 pg (27.0-32.0); Mean Corpuscular Volume 90.3 fL (81-99); Mean Platelet Vol. 9.4 fl (6.2-12.0); Monocyte# 0.68 X10^3/uL; NRBC Flagged by Analyzer 0 % (0-5); Neutrophil # 11.35 X10^3/uL (2.7-7.7); Neutrophil % 83.4 % (47-70); Platelet Count 276 K/mm3 (150-450); RBC Distribution Width CV 13.8 % (11.6-14.6); RBC Distribution Width SD 45.1 fl (35.1-43.9); Red Blood Count 4.04 M/mm3 (4.2-5.4); White Blood Count 13.6 K/mm3 (4.4-11.0)
[2021-12-16] MEDS: fentaNYL 100 MCG/2 ML Ampul 50 MCG IV (16:09)
[2021-12-16 16:17] LABS: Fibrinogen 488 mg/dl (203-444)
[2021-12-16 16:30] LABS: ALB/GLOB Ratio 0.6 RATIO (0.9-2.4); AST(SGOT) 14 U/L (15-37); Alanine Aminotransfer ALT/SGPT 16 U/L (13-56); Albumin, Serum 2.7 g/dL (3.2-5.0); Alkaline Phosphatase 107 U/L (45-117); Anion Gap 7 (5-15); BUN 10 mg/dL (7-18); BUN/Creat Ratio 12.3 RATIO (10-20); Calcium,Total 8.6 mg/dL (8.5-10.1); Chloride 106 mmol/L (98-107); Creatinine, Serum 0.81 mg/dL (0.55-1.02); EST Glomerular Filtration Rate 88 mL/min (>60); Est Glom Filt Rate - Afr Amer 106 mL/min (>60); Estimated Creatinine Clearance 80.32 ml/min; Globulin 4.5 g/dL (2.2-4.2); Glucose 96 mg/dL (74-106); LDH 141 U/L (84-246); Lipase 119 U/L (73-393); Potassium 3.9 mmol/L (3.5-5.1); Protein, Total 7.2 g/dL (6.4-8.2); Sodium Level 136 mmol/L (136-145)
[2021-12-16 16:30] LABS: Lactic Acid 0.9 mmol/L (0.4-1.9)
[2021-12-16 17:02] VITALS: BP 115/74; PULSE 90; TEMP 36.8; O2SAT 96
[2021-12-16 19:25] VITALS: BP 111/72; PULSE 93; PULSE 94; TEMP 37; O2SAT 96
[2021-12-16 20:14] LABS: Absolute Lymphocyte Count 1.19 X10^3/uL (0.83-4.51); Absolute Neutrophil Count 11.9 X10^3/uL (2.0-7.7); Basophil# 0.02 X10^3/uL; Basophil% 0.1 % (0-1); Eosinophil# 0.02 X10^3/uL; Eosinophils% 0.1 % (0-5); Hematocrit 35.1 % (37-47); Hemoglobin 11.6 g/dL (12.0-15.0); Lymphocyte # 1.19 X10^3/ul (0.83-4.51); Lymphocyte % 8.6 % (19-41); Mean Corpuscular Hgb 30.2 pg (27.0-32.0); Mean Corpuscular Volume 91.4 fL (81-99); Mean Platelet Vol. 9.3 fl (6.2-12.0); Monocyte# 0.56 X10^3/uL; Monocyte% 4.1 % (0-10); NRBC Flagged by Analyzer 0 % (0-5); Neutrophil # 11.91 X10^3/uL (2.7-7.7); Neutrophil % 86.4 % (47-70); Platelet Count 245 K/mm3 (150-450); RBC Distribution Width CV 13.8 % (11.6-14.6); RBC Distribution Width SD 45.8 fl (35.1-43.9); Red Blood Count 3.84 M/mm3 (4.2-5.4); White Blood Count 13.8 K/mm3 (4.4-11.0)
[2021-12-16] MEDS: Acetaminophen 500 MG Tablet 1000 MG PO (20:21)
[2021-12-16 20:27] LABS: Fibrinogen 458 mg/dl (203-444)
--- NOTE | 2021-12-18 12:19 | OB.TRI.PN_ITS ---
Progress Notes Progress Note: Patient presents for triage evaluation secondary to abdominal pain. no vb lof admits good fm irregular ctx no cervical change. no fevers. FHT: 130-140 Moderate variability reactive no decelerations category I tracing Stevens: q2-5 then irregular Contractions Assessment and plan: abdominal pain in . suspect early labor. serial labs stable, extended monitoring reassuring. Reactive NST, reassuring maternal and status patient discharged to home to follow-up sunday/sunday in office. See problem list details for additional plan information. Laboratory Studies: Laboratory Tests 12/16/21 12/16/21 12/16/21 Range/Units 20:05 20:05 15:50 WBC 13.8 H (4.4-11.0) K/mm3 RBC 3.84 L (4.2-5.4) M/mm3 Hgb 11.6 L (12.0-15.0) g/dL Hct 35.1 L (37-47) % MCV 91.4 (81-99) fL MCH 30.2 (27.0-32.0) pg MCHC 33.0 (32-36) g/dL RDW Std Deviation 45.8 H (35.1-43.9) fl RDW Coeff of Sara 13.8 (11.6-14.6) % Plt Count 245 (150-450) K/mm3 MPV 9.3 (6.2-12.0) fl Immature Gran % (Auto) 0.700 (0.0-0.9) % Neut % (Auto) 86.4 H (47-70) % Lymph % (Auto) 8.6 L (19-41) % [place] % (Auto) 4.1 (0-10) % Eos % (Auto) 0.1 (0-5) % Baso % (Auto) 0.1 (0-1) % Absolute Neuts (auto) 11.9 H (2.0-7.7) X10^3/uL Absolute Lymphs (auto) 1.19 (0.83-4.51) X10^3/uL Nucleated RBC % 0 (0-5) % Fibrinogen 458 H (203-444) mg/dl Sodium (136-145) mmol/L Potassium (3.5-5.1) mmol/L Chloride (98-107) mmol/L Carbon Dioxide (21.0-32.0) mmol/L Anion Gap (5-15) BUN (7-18) mg/dL Creatinine (0.55-1.02) mg/dL Estim Creat Clear Calc ml/min Est GFR (MDRD) Af Amer (>60) mL/min Est GFR (MDRD) Non-Af (>60) mL/min BUN/Creatinine Ratio (10-20) RATIO Glucose (74-106) mg/dL Lactic Acid 0.9 (0.4-1.9) mmol/L Calcium (8.5-10.1) mg/dL Total Bilirubin (0.20-1.00) mg/dL AST (15-37) U/L ALT (13-56) U/L Alkaline Phosphatase (45-117) U/L Lactate Dehydrogenase (84-246) U/L Total Protein (6.4-8.2) g/dL Albumin (3.2-5.0) g/dL Globulin (2.2-4.2) g/dL Albumin/Globulin Ratio (0.9-2.4) RATIO Lipase (73-393) U/L Urine Color (Yellow) Urine Clarity (Clear) Urine pH (5.0 - 8.0) Ur Specific [place] (1.002-1.030) Urine Protein (Negative) mg/dl Urine Glucose (UA) (Normal) mg/dl Urine Ketones (Negative) mg/dl Urine Occult Blood (Negative) /ul Urine Nitrite (Negative) Urine Bilirubin (Negative) mg/dL Urine Urobilinogen (Normal) mg/dl Ur Leukocyte Esterase (Negative) /ul 12/16/21 12/16/21 12/16/21 Range/Units 15:41 15:41 15:41 WBC 13.6 H (4.4-11.0) K/mm3 RBC 4.04 L (4.2-5.4) M/mm3 Hgb 11.8 L (12.0-15.0) g/dL Hct 36.5 L (37-47) % MCV 90.3 (81-99) fL MCH 29.2 (27.0-32.0) pg MCHC 32.3 (32-36) g/dL RDW Std Deviation 45.1 H (35.1-43.9) fl RDW Coeff of Sara 13.8 (11.6-14.6) % Plt Count 276 (150-450) K/mm3 MPV 9.4 (6.2-12.0) fl Immature Gran % (Auto) 0.900 (0.0-0.9) % Neut % (Auto) 83.4 H (47-70) % Lymph % (Auto) 10.4 L (19-41) % [place] % (Auto) 5.0 (0-10) % Eos % (Auto) 0.1 (0-5) % Baso % (Auto) 0.2 (0-1) % Absolute Neuts (auto) 11.4 H (2.0-7.7) X10^3/uL Absolute Lymphs (auto) 1.41 (0.83-4.51) X10^3/uL Nucleated RBC % 0 (0-5) % Fibrinogen 488 H (203-444) mg/dl Sodium 136 (136-145) mmol/L Potassium 3.9 (3.5-5.1) mmol/L Chloride 106 (98-107) mmol/L Carbon Dioxide 23.0 (21.0-32.0) mmol/L Anion Gap 7 (5-15) BUN 10 (7-18) mg/dL Creatinine 0.81 (0.55-1.02) mg/dL Estim Creat Clear Calc 80.32 ml/min Est GFR (MDRD) Af Amer 106 (>60) mL/min Est GFR (MDRD) Non-Af 88 (>60) mL/min BUN/Creatinine Ratio 12.3 (10-20) RATIO Glucose 96 (74-106) mg/dL Lactic Acid (0.4-1.9) mmol/L Calcium 8.6 (8.5-10.1) mg/dL Total Bilirubin 0.50 (0.20-1.00) mg/dL AST 14 L (15-37) U/L ALT 16 (13-56) U/L Alkaline Phosphatase 107 (45-117) U/L Lactate Dehydrogenase 141 (84-246) U/L Total Protein 7.2 (6.4-8.2) g/dL Albumin 2.7 L (3.2-5.0) g/dL Globulin 4.5 H (2.2-4.2) g/dL Albumin/Globulin Ratio 0.6 L (0.9-2.4) RATIO Lipase 119 (73-393) U/L Urine Color (Yellow) Urine Clarity (Clear) Urine pH (5.0 - 8.0) Ur Specific [place] (1.002-1.030) Urine Protein (Negative) mg/dl Urine Glucose (UA) (Normal) mg/dl Urine Ketones (Negative) mg/dl Urine Occult Blood (Negative) /ul Urine Nitrite (Negative) Urine Bilirubin (Negative) mg/dL Urine Urobilinogen (Normal) mg/dl Ur Leukocyte Esterase (Negative) /ul 12/16/21 Range/Units 14:30 WBC (4.4-11.0) K/mm3 RBC (4.2-5.4) M/mm3 Hgb (12.0-15.0) g/dL Hct (37-47) % MCV (81-99) fL MCH (27.0-32.0) pg MCHC (32-36) g/dL RDW Std Deviation (35.1-43.9) fl RDW Coeff of Sara (11.6-14.6) % Plt Count (150-450) K/mm3 MPV (6.2-12.0) fl Immature Gran % (Auto) (0.0-0.9) % Neut % (Auto) (47-70) % Lymph % (Auto) (19-41) % [place] % (Auto) (0-10) % Eos % (Auto) (0-5) % Baso % (Auto) (0-1) % Absolute Neuts (auto) (2.0-7.7) X10^3/uL Absolute Lymphs (auto) (0.83-4.51) X10^3/uL Nucleated RBC % (0-5) % Fibrinogen (203-444) mg/dl Sodium (136-145) mmol/L Potassium (3.5-5.1) mmol/L Chloride (98-107) mmol/L Carbon Dioxide (21.0-32.0) mmol/L Anion Gap (5-15) BUN (7-18) mg/dL Creatinine (0.55-1.02) mg/dL Estim Creat Clear Calc ml/min Est GFR (MDRD) Af Amer (>60) mL/min Est GFR (MDRD) Non-Af (>60) mL/min BUN/Creatinine Ratio (10-20) RATIO Glucose (74-106) mg/dL Lactic Acid (0.4-1.9) mmol/L Calcium (8.5-10.1) mg/dL Total Bilirubin (0.20-1.00) mg/dL AST (15-37) U/L ALT (13-56) U/L Alkaline Phosphatase (45-117) U/L Lactate Dehydrogenase (84-246) U/L Total Protein (6.4-8.2) g/dL Albumin (3.2-5.0) g/dL Globulin (2.2-4.2) g/dL Albumin/Globulin Ratio (0.9-2.4) RATIO Lipase (73-393) U/L Urine Color Yellow (Yellow) Urine Clarity Clear (Clear) Urine pH 6.5 (5.0 - 8.0) Ur Specific [place] 1.020 (1.002-1.030) Urine Protein 15 H (Negative) mg/dl Urine Glucose (UA) Normal (Normal) mg/dl Urine Ketones Negative (Negative) mg/dl Urine Occult Blood Negative (Negative) /ul Urine Nitrite Negative (Negative) Urine Bilirubin Negative (Negative) mg/dL Urine Urobilinogen Normal (Normal) mg/dl Ur Leukocyte Esterase 25 H (Negative) /ul Charges/Coding Procedures Urinary/Genital [id number]: [id number] non-stress test Interp
== END 2021-12-16 21:02 | disposition home or self-care (01) ==
LOC: WPOUT 14:55 → WP 14:56
PROVIDERS: Referring Provider Obstetrics & Gynecology; Visit Provider Obstetrics & Gynecology
DX: O26.899 Other specified pregnancy related conditions, unspecified trimester (principal); R10.9 Unspecified abdominal pain
CPT/HCPCS: 96374; 36415; 59025; 59050; 80053; 81002; 83605; 83615; 83690; 85025; 85384; 87086; 93005; 99218; J7120; G0378

== ENCOUNTER 2021-12-31 06:50 | Inpatient (IN) | payer OTHER, SELFPAY ==
[2021-12-31] VITALS (36 sets, daily range): BP systolic 95–129; BP diastolic 54–91; PULSE 69–109; RESP 16; TEMP 36.3–36.8; O2SAT 95–99; BMI 33.8
[2021-12-31] MEDS: Lactated Ringers 1,000 ML 50 ML IV (08:01)
[2021-12-31] MEDS: Oxytocin 30 units/NS 500 ml 30 UNITS/500 ML IV.SOLN IV (08:02)
[2021-12-31] MEDS: 0.9% Normal Saline Single 100 ML IV.SOLN. INTRA-UTER (08:14)
[2021-12-31 08:49] LABS: Absolute Lymphocyte Count 1.31 X10^3/uL (0.83-4.51); Absolute Neutrophil Count 5.3 X10^3/uL (2.0-7.7); Basophil# 0.03 X10^3/uL; Basophil% 0.4 % (0-1); Eosinophil# 0.02 X10^3/uL; Eosinophils% 0.3 % (0-5); Hematocrit 35.3 % (37-47); Hemoglobin 11.7 g/dL (12.0-15.0); Lymphocyte # 1.31 X10^3/ul (0.83-4.51); Lymphocyte % 17.1 % (19-41); Mean Corp Hgb Conc 33.1 g/dL (32-36); Mean Corpuscular Hgb 29.8 pg (27.0-32.0); Mean Corpuscular Volume 89.8 fL (81-99); Mean Platelet Vol. 9.5 fl (6.2-12.0); Monocyte# 0.97 X10^3/uL; Monocyte% 12.6 % (0-10); NRBC Flagged by Analyzer 0 % (0-5); Neutrophil # 5.29 X10^3/uL (2.7-7.7); Neutrophil % 68.8 % (47-70); Platelet Count 264 K/mm3 (150-450); RBC Distribution Width CV 13.7 % (11.6-14.6); RBC Distribution Width SD 44.9 fl (35.1-43.9); Red Blood Count 3.93 M/mm3 (4.2-5.4); White Blood Count 7.7 K/mm3 (4.4-11.0)
--- NOTE | 2021-12-31 09:36 | HP.PCM.OB_ITS ---
HPI - General General Date of Admission: 12/31/21 HPI Narrative NELSON PERRY, is a 31 F who presents for IOL elective and favorable preciado score. she had a positive rapid covid upon admission and PCR is pending. she states she had a sore throat . her is asymptomatic. she denies any vb lof admits good fm. Maternal Data Information ANNA Calculator Estimated Delivery Date Method Current WG Current Estimate 12/31/21 LMP (Certain) 40w 0d PFSH PFSH Home Medications multivitamin no.47-iron fum 27 mg-folate no.1 1 mg-dha 300 mg capsule (PNV-DHA) 1 cap PO DAILY 04/07/20 [History Last Taken 12/30/21 22:00] breast pump #1 ea 10/07/21 [Rx Last Taken Unknown] doxylamine succinate 25 mg tablet (Unisom (doxylamine)) 12.5 mg PO QHS PRN Sleep 12/31/21 [History Last Taken 12/30/21 22:00] Allergy/AdvReac Type Severity Reaction Status Date / Time sulfamethoxazole Allergy Intermediate Hives Verified 12/16/21 14:25 [From Bactrim] trimethoprim [From Bactrim] Allergy Intermediate Hives Verified 12/16/21 14:25 Family History (Updated 12/31/21 @ 09:36 by Leia Vigil) Grandfather Heart disease Myocardial infarction Cancer Bone Brother ADHD Mother Narcolepsy Grandmother COPD (chronic obstructive pulmonary disease) Daughter Hypoplastic left heart syndrome of fetus affecting management of mother Surgical History H/O reconstruction of anterior cruciate ligament tear (~2007) H/O wisdom tooth extraction (~2008) History of repair of ACL Social History household members: family housing: house number of children: 1 Smoking Status: Never smoker second hand exposure: No alcohol intake: current alcohol intake frequency: holidays/special occasions only details: not while substance use type: does not use seatbelt use: always do you feel safe at home: Yes additional social history: - Hermelindo History 3 Elective abortions 1 Hx Para 1 Spontaneous abortions Hx # Term Pregnancies Ectopic pregnancies Hx # Pregnancies Multiple births # of living children 1 Past Pregnancies Del. 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 Uncomplicated Visit Details Expected Delivery Route/Plan plan iol by 39 Labor Preferences- CB/BF classes: labor support person: Hermelindo labor intervention preferences: [] pain management options preferred: [] cut cord/dad catch: [] : [] PP control planned: [] discussed possible routes of delivery and associated risks: [] special requests: [] Plans Covid status: discussed Flu vaccine: discussed Tdap vaccine: given Rhogam: na LARC form signed:declined movement and labor precautions reviewed. Problem list reviewed and updated with the most current plan of care details and appropriate orders placed. Relevant counseling for the gestational age provided. Continue routine care and follow up unless otherwise noted in visit notes/problem list details OB Flowsheet Initial Weight: 158 lb Date -?-?-?-?-?-?-?-?-?-?-?-?- EGA Weight BP Urine Prot -?-?-?-?-?-?-?-?-?-?-?-?- Glucose FHR FuHt Pres Dilation -?-?-?-?-?-?-?-?-?-?-?-?- Effaced St Visit Note 05/24/21 -?-?-?-?-?-?-?-?-?-?-?-?- 8w 3d 158 lb (+0 oz) 120/82 -?-?-?-?-?-?-?-?-?-?-?-?- -?-?-?-?-?-?-?-?-?-?-?-?- JV- CRL consiste nt with LMP 06/24/21 -?-?-?-?-?-?-?-?-?-?-?-?- 12w 6d 158 lb 6 oz (+6 oz) 108/68 Negative -?-?-?-?-?-?-?-?-?-?-?-?- Negative 145 -?-?-?-?-?-?-?-?-?-?-?-?- Sm- no vb [facility] ng 07/22/21 -?-?-?-?-?-?-?-?-?-?-?-?- 16w 6d 159 lb 2 oz (+1 lb 2 oz) 128/64 Negative -?-?-?-?-?-?-?-?-?-?-?-?- Negative 143 -?-?-?-?-?-?-?-?-?-?-?-?- JV- JV- had gi bug x 2 since las t seen. rx for zofran sent to pharmacy. pt going on per to [place] for her birthday this month 08/19/21 -?-?-?-?-?-?-?-?-?-?-?-?- 20w 6d 161 lb 8 oz (+3 lb 8 oz) 100/64 Negative -?-?-?-?-?-?-?-?-?-?-?-?- Negative 140 -?-?--?-?-?-?-?-?-?-?-?-?- SM- reviewed afia tan results, fu scheduled. she is having flushing and dizzy episodes. she is having multiple episodes a day and for the last few weeks and has visual changes sometimes. unsure if she has definite palpitations. no CP but some sob. no syncopal episodes. 09/14/21 -?-?-?-?-?-?-?-?-?-?-?-?- 24w 4d 171 lb 6 oz (+13 lb 6 oz) 118/70 Negative -?-?-?-?-?-?-?-?-?-?-?-?- Negative 136 -?-?-?-?-?-?-?-?-?-?-?-?- MH-No VB, LOF. G ood FM. States had echo yesterday and was told WNL. MH-No VB, LOF. Good FM. Stat es had echo yesterday and was told WNL. States dizziness has improved but palpitations persist/EKG ordered 10/07/21 -?-?-?-?-?-?-?-?-?-?-?-?- 27w 6d 175 lb (+17 lb) 102/60 Negative -?-?-?-?-?-?-?-?-?-?-?-?- Negative 140 29 -?-?-?-?-?-?-?-?-?-?-?-?- SM- no vb lof go od fm no regular ctx 10/21/21 -?-?-?-?-?-?-?-?-?-?-?-?- 29w 6d 175 lb 8 oz (+17 lb 8 oz) 130/78 Negative -?-?-?-?-?-?-?-?-?-?-?-?- Negative 145 31 -?-?-?-?-?-?-?-?-?-?-?-?- JV- no lof ,vagi nal bleeding, or dec fm. minh just hired by [facility] as psychiatrist and insurance will end with [facility] at 40 weeks .plan for 39 week IOL. 11/18/21 -?-?-?-?-?-?-?-?-?-?-?-?- 33w 6d 181 lb 4 oz (+23 lb 4 oz) 120/70 Negative -?-?-?-?-?-?-?-?-?-?-?-?- Negative 140 35 -?-?-?-?-?-?-?-?-?-?-?-?- SM- no vb lof go od fm no regualr ctx 12/02/21 -?-?-?-?-?-?-?-?-?-?-?-?- 35w 6d 184 lb 8 oz (+26 lb 8 oz) 120/78 Negative -?-?-?-?-?-?-?-?-?-?-?-?- Negative 135 36 -?-?-?-?-?-?-?-?-?-?-?-?- SM- no vb lof go od fm no regular ctx 12/09/21 -?-?-?-?-?-?-?-?-?-?-?-?- 36w 6d 185 lb 8 oz (+27 lb 8 oz) 122/87 Negative -?-?-?-?-?-?-?--?-?-?-?-?- Negative 125 36 Cephalic 1 -?-?-?-?-?-?-?-?-?-?-?-?- 0 -3 JV- no lof , vaginal bleeding, or dec fm. GBS collected. 12/16/21 -?-?-?-?--?-?-?-?-?-?-?-?- 37w 6d 186 lb (+28 lb) 139/82 Negative -?-?-?-?-?-?-?-?-?-?-?-?- Negative 130 38 Cephalic -?-?-?-?-?-?-?-?-?-?-?-?- SM- complains of abdominal pain upper and all over, to l and d for further evaluation 12/19/21 -?-?-?-?-?-?-?-?-?-?-?-?- 38w 2d 186 lb (+28 lb) 116/78 116/78 Negative -?-?-?-?-?-?-?-?-?-?-?-?- Negative 135 39 Cephalic 2 -?-?-?-?-?-?-?-?-?-?-?-?- 60 -2 SM- no vb lof still having some intermittent abdominal pain and now nausea, loose stool, pain no worse. discussed IOL sunday. possible GI illness as cause of symptoms. 12/30/21 -?-?-?-?-?-?-?-?-?-?-?-?- 39w 6d 187 lb (+29 lb) 120/76 Negative -?-?-?-?-?-?-?-?-?-?-?-?- Negative 140 41 Cephalic 2 -?-?-?-?-?-?-?-?-?-?-?-?- 60 -2 SM- no vb lof good fm no regular ctx 12/31/21 -?-?-?-?-?-?-?-?-?-?-?-?- 40w 0d 185 lb (+27 lb) 119/66 119/66 114/63 -?-?-?-?-?-?-?-?-?-?-?-?- -?-?-?-?-?-?-?-?-?-?-?-?- NST FHR Rate Baby A Baseline: 130 Variability:: Moderate Accelerations:: 15 x 15 Decelerations:: None NST Reactive:: Yes FHR Category:: Category I Uterine Activity:: irregular ROS Constitutional Constitutional: Reports systems reviewed and no addt'l complaints, except as documented Eyes Eyes: Denies change in vision ENT HEENT: Reports systems reviewed and no addt'l complaints, except as documented; Denies headache(s) Cardiovascular Cardiovascular: Reports systems reviewed and no addt'l complaints, except as documented; Denies chest pain or dyspnea Respiratory/Chest Respiratory/Chest: Reports systems reviewed and no addt'l complaints, except as documented Gastrointestinal Gastrointestinal: Reports systems reviewed and no addt'l complaints, except as documented; Denies abdominal pain Genitourinary Genitourinary: Reports systems reviewed and no addt'l complaints, except as documented, contractions Details: present (irregular) and movement Details: present; Denies dysuria or genital lesions Musculoskeletal Musculoskeletal: Reports systems reviewed and no addt'l complaints, except as documented Neurologic Neurologic: Reports systems reviewed and no addt'l complaints, except as documented Endocrine Endocrinology: Reports systems reviewed and no addt'l complaints, except as documented Vital Signs Vital Signs Vital Signs: 12/31/21 07:29 12/31/21 07:29 12/31/21 07:30 Temperature Temperature Source Temporal Pulse Rate 88 Blood Pressure 119/66 BP Systolic 119 BP Diastolic 66 Pulse Ox 12/31/21 07:30 12/31/21 07:30 12/31/21 07:30 Temperature Temperature Source Pulse Rate 88 Blood Pressure 119/66 BP Systolic 119 BP Diastolic 66 Pulse Ox 97 12/31/21 07:30 12/31/21 09:14 12/31/21 09:14 Temperature 97.5 F L Temperature Source Temporal Pulse Rate Blood Pressure 114/63 BP Systolic 114 BP Diastolic 63 Pulse Ox 12/31/21 09:14 12/31/21 09:14 12/31/21 09:14 Temperature 97.6 F L Temperature Source Pulse Rate 75 Blood Pressure BP Systolic BP Diastolic Pulse Ox 98 Weight Weight: 185 lb Body Mass Index (BMI) 33.8 Physical Exam Const alert, oriented x3, no apparent distress and healthy appearing HEENT normocephalic and moist oral mucous membranes Head and Scalp: atraumatic Neck full ROM, no lymphadenopathy, supple and thyroid normal General: trachea midline Lymph Lymphatic: no lymphadenopathy noted Chest inspection of chest normal Resp normal respiratory effort Cardio regular rate GI normal to inspection, nondistended, normoactive bowel sounds, soft to palpation and non-tender Inspection: gravid external exam normal Manual OB Exam: estimated gestational size appropriate, presentation cephalic, dilated, effaced and station Extremity normal to inspection General Extremity: Negative for edema Skin no rashes or lesions noted Neuro no focal motor deficits and deep tendon reflexes 2+ bilaterally Motor Exam: strength 5/5 throughout and clonus absent Psych mental status grossly normal Labs Labs Labs: Blood Type A POSITIVE Antibody Screen NEGATIVE Hct 35.3 % (37-47) L Hgb 11.7 g/dL (12.0-15.0) L Obstetrics US Syphilis Total Ab Non-reactive Rubella IgG Antibody Reactive (Nonreactive) Hep Bs Antigen Non-Reactive (Nonreactive) Chlamydia DNA (ESTEBAN) Negative (Negative) Neisseria gonorrhoeae DNA (ESTEBAN) Negative (Negative) HIV 1&2 Antibody Non-Reactive (Nonreactive) Glucose 1 Hr 50 gm 99 mg/dL (70-140) Rhogam given: No Assessment & Plan (1) Current boyer with history of congenital heart disease in prior child, antepartum: COMMENT: h/o hypoplastic left heart- had D&E at 18 weeks. nl echo 09/13 (2) : QUALIFIERS: Weeks of gestation: 39 weeks Qualified Code(s): Z3A.39 - 39 weeks gestation of COMMENT: GBS neg. NIPT low risk; declined afp. already had carrier testing patient had both negative, nl NT with MFM.anatomy reveiwed (3) Supervision of high risk , antepartum: COMMENT: PRR ANNA: 12/31/21, boy, PC: Regina Spouse: Hermelindo (4) Encounter for induction of labor: COMMENT: IOL pit fb epi PRN PLAN: Plan Patient presents IOL, plan management for with pit fb arom PRN. Pain management: plans epidural. GBS negative. Management of any complications: await covid pcr precautions taken in mean time I have reviewed the [facility] and made any clinically relevant updates.
[2021-12-31] MEDS: LACTATED RINGERS 500 ML 999 ML IV (09:40)
[2021-12-31] MEDS: fentaNYL-bupivacaine (epidural) 100 ML BAG EPIDURAL (11:13)
[2021-12-31] MEDS: Oxytocin 30 units/NS 500 ml 30 UNITS/500 ML IV.SOLN 334 UNITS IV (15:24)
--- NOTE | 2021-12-31 15:30 | EX.PCM.OBRPT ---
Assessment & Plan (1) Supervision of high risk , antepartum: COMMENT: PRR ANNA: 12/31/21, boy, PC: Regina Spouse: Hermelindo (2) : QUALIFIERS: Weeks of gestation: 39 weeks Qualified Code(s): Z3A.39 - 39 weeks gestation of COMMENT: GBS neg. NIPT low risk; declined afp. already had carrier testing patient had both negative, nl NT with MFM.anatomy reveiwed (3) Current boyer with history of congenital heart disease in prior child, antepartum: COMMENT: h/o hypoplastic left heart- had D&E at 18 weeks. nl echo 09/13 (4) Encounter for induction of labor: COMMENT: IOL pit fb epi PRN (5) COVID-19 virus RNA test result positive at limit of detection: COMMENT: at delivery, precautions taken, mild disease (6) Vaginal delivery: COMMENT: SM IOL 40 covid pos boy Alexandrea Maternal Data Information ANNA Calculator Estimated Delivery Date Method Current WG Current Estimate 12/31/21 LMP (Certain) 40w 0d Vaginal Delivery Operative Information Date of Procedure: 12/31/21 Pre-Operative Diagnosis: iol elective Post-Operative Diagnosis: same Surgery / Procedure Performed: Spontaneous Vaginal Delivery Type of Anesthesia: Epidural Special Medications: none Estimated Blood Loss: 100 Fluids Replaced: crystalloid Findings Description of Procedure: Patient began pushing and delivered the head in the ANA M presentation. The head was delivered atraumatically . The anterior and posterior shoulders delivered without complication followed by the rest of the infant and the infant was placed on the maternal abdomen. Delayed cord clamping was employed for approximately 60 seconds. Cord was clamped and cut and gentle traction was applied to the cord and the placenta delivered spontaneously immediately following it was noted to be intact with three-vessel cord. The perineum and vagina were inspected and noted to have a first degree laceration repaired in the usual fashion without complication with 3-0 rapide. EBL was 100 cc. Patient and tolerated delivery well. Presentation: ANA M Amniotic Membrane Rupture Type: Artificial Amniotic Fluid Description: Clear Placental Delivery Description: Spontaneous Placenta Disposition: [facility] Cord Vessel Description: 3 Vessels Cord Entanglement: None Delayed Cord Clamping: Yes Post Vaginal Delivery Medications Given After Delivery: IV Pitocin Episiotomy Description: None Laceration: None Complication Complications: None Procedures Urinary/Genital [id number]: [id number] Vaginal Delivery [facility]
[2021-12-31] MEDS: Naproxen 500 MG Tablet PO (19:15)
[2021-12-31] MEDS: Senna/Docusate Sodium 1 Tablet PO (19:15)
[2021-12-31] MEDS: Acetaminophen 500 MG Tablet 1000 MG PO (23:58)
[2022-01-01 00:02] VITALS: PULSE 71; O2SAT 82
[2022-01-01 00:03] VITALS: BP 101/55; PULSE 63; PULSE 67; RESP 14; TEMP 36; O2SAT 97
[2022-01-01] MEDS: Naproxen 500 MG Tablet PO ×2 (03:15→10:45)
[2022-01-01 03:17] VITALS: BP 116/64; PULSE 75; RESP 14; TEMP 35.9; O2SAT 96
--- NOTE | 2022-01-01 03:54 | PCM.PN.OB ---
Subjective Subjective Patient doing well without complaints. Tolerating PO. Ambulating and voiding without difficulty. feeding well. Denies chest pain, shortness of breath, calf pain/swelling, fevers, chills, lightheadedness. Objective Data Objective Data Vital Signs: Vital Signs Temp Pulse Resp BP Pulse Ox O2 Del Method 96.7 F L 75 14 116/64 96 Room Air 01/01/22 03:17 01/01/22 03:17 01/01/22 03:17 01/01/22 03:17 01/01/22 03:17 01/01/22 03:17 Oxygen Delivery Method Room Air Weight: 185 lb Body Mass Index (BMI) 33.8 Intake & Output: Intake and Output for Last 24 Hours 12/30/21 12/31/21 01/01/22 23:59 23:59 23:59 Intake Total 2331.64 / 2331.64 Output Total 1200 / 1200 Balance 1131.64 / 1131.64 Lab / Micro Data Result Diagrams: 12/31/21 08:05 Labs: Laboratory Results - last 24 hr 12/31/21 08:05: WBC 7.7, RBC 3.93 L, Hgb 11.7 L, Hct 35.3 L, MCV 89.8, MCH 29.8, MCHC 33.1, RDW Std Deviation 44.9 H, RDW Coeff of Sara 13.7, Plt Count 264, MPV 9.5, Immature Gran % (Auto) 0.800, Neut % (Auto) 68.8, Lymph % (Auto) 17.1 L, Freeborn % (Auto) 12.6 H, Eos % (Auto) 0.3, Baso % (Auto) 0.4, Absolute Neuts (auto) 5.3, Absolute Lymphs (auto) 1.31, Nucleated RBC % 0 12/31/21 08:05: Blood Type A POSITIVE, Antibody Screen NEGATIVE 12/31/21 09:30: COVID-19 (ESTEBAN) Detected Micro: Microbiology 12/31/21 07:40 Nasal Secretion SARS-CoV-2 Antigen (Rapid) - Final SARS-CoV-2 (COVID 19) ROS Constitutional Constitutional: Reports systems reviewed and no addt'l complaints, except as documented Cardiovascular Cardiovascular: Reports systems reviewed and no addt'l complaints, except as documented Respiratory/Chest Respiratory/Chest: Reports systems reviewed and no addt'l complaints, except as documented Gastrointestinal Gastrointestinal: Reports systems reviewed and no addt'l complaints, except as documented Physical Exam Const alert, oriented x3 and no apparent distress HEENT Head and Scalp: atraumatic Resp normal respiratory effort GI soft to palpation and non-tender Bimanual Exam - Vag & Uterus: uterus non-tender Uterus Palpation: uterus fundus firm (below Umbilicus) Assessment & Plan (1) COVID-19 virus RNA test result positive at limit of detection: COMMENT: at delivery, precautions taken, mild disease (2) Vaginal delivery: COMMENT: SM IOL 40 covid pos boy Alexandrea PLAN: Plan s/p PPD # 1 1. routine post delivery care 2. breast feeding- support given 3. rh positive 4. rubella immune
[2022-01-01] MEDS: Acetaminophen 500 MG Tablet 1000 MG PO (05:44)
[2022-01-01 10:00] VITALS: BP 114/72; PULSE 81; RESP 18; TEMP 36.4; O2SAT 97
[2022-01-01 10:36] VITALS: BP 114/72; PULSE 81
[2022-01-01] MEDS: Senna/Docusate Sodium 1 Tablet PO (10:45)
[2022-01-01 14:00] VITALS: BP 110/67; PULSE 85; RESP 18; TEMP 36.6; O2SAT 97
== END 2022-01-01 17:30 | disposition home or self-care (01) | DRG 805 ==
PROVIDERS: Admitting Provider Obstetrics & Gynecology; Visit Provider Obstetrics & Gynecology
DX: O98.52 Other viral diseases complicating childbirth (principal); Z37.0 Single live birth; U07.1 COVID-19; O70.0 First degree perineal laceration during delivery; Z3A.39 39 weeks gestation of pregnancy
CPT/HCPCS: 59025; 59050; 85025; 86850; 86900; 86901; 87426; 87635; 99218; J7120; G0378; U0003; U0005

== ENCOUNTER → 2022-10-25 | Outpatient (CLI) | payer OTHER, SELFPAY ==
[2022-10-25 16:43] LABS: Absolute Lymphocyte Count 2.79 X10^3/uL (0.83-4.51); Absolute Neutrophil Count 2.6 X10^3/uL (2.0-7.7); Basophil# 0.07 X10^3/uL; Basophil% 1.2 % (0-1); Eosinophil# 0.12 X10^3/uL; Hematocrit 39.4 % (37-47); Hemoglobin 12.4 g/dL (12.0-15.0); Lymphocyte # 2.79 X10^3/ul (0.83-4.51); Mean Corp Hgb Conc 31.5 g/dL (32-36); Mean Corpuscular Hgb 28.6 pg (27.0-32.0); Monocyte# 0.38 X10^3/uL; Monocyte% 6.4 % (0-10); NRBC Flagged by Analyzer 0 % (0-5); Neutrophil # 2.56 X10^3/uL (2.7-7.7); Neutrophil % 43.2 % (47-70); POSITIVE MORPHOLOGY YES; Platelet Count 300 K/mm3 (150-450); RBC Distribution Width CV 12.9 % (11.6-14.6); Red Blood Count 4.33 M/mm3 (4.2-5.4); White Blood Count 5.9 K/mm3 (4.4-11.0)
[2022-10-25 16:48] LABS: Differential Indicated SCAN CRITERIA MET
[2022-10-25 16:59] LABS: ALB/GLOB Ratio 0.9 RATIO (0.9-2.4); AST(SGOT) 13 U/L (15-37); Alanine Aminotransfer ALT/SGPT 15 U/L (13-56); Albumin, Serum 3.8 g/dL (3.2-5.0); Alkaline Phosphatase 70 U/L (45-117); Anion Gap 6 (5-15); BUN 12 mg/dL (7-18); BUN/Creat Ratio 15.7 RATIO (10-20); Calcium,Total 9.3 mg/dL (8.5-10.1); Chloride 108 mmol/L (98-107); Cholesterol 194 mg/dL (200); Creatinine, Serum 0.76 mg/dL (0.55-1.02); EST Glomerular Filtration Rate 94 mL/min (>60); Est Glom Filt Rate - Afr Amer 114 mL/min (>60); Globulin 4.2 g/dL (2.2-4.2); Glucose 85 mg/dL (74-106); High Density Lipoprotein 48 mg/dL; Potassium 3.9 mmol/L (3.5-5.1); Sodium Level 141 mmol/L (136-145); Triglycerides 168 mg/dL; Very Low Density Lipoprotein 34 mg/dL (5-40)
[2022-10-25 17:25] LABS: Differential Comment SCANNED
== END | disposition home or self-care (01) ==
PROVIDERS: PCP Internal Medicine; Referring Provider Internal Medicine; Visit Provider Internal Medicine
DX: Z00.00 Encounter for general adult medical examination without abnormal findings (principal)
CPT/HCPCS: 36415; 80053; 80061; 85025

== ENCOUNTER → 2022-11-01 | Outpatient (CLI) | payer OTHER, SELFPAY ==
--- NOTE | 2022-11-01 09:01 | ECHOD_ITS ---
Reason For Study: MURMUR Procedure This was a 2D Doppler, Color Flow transthoracic echocardiogram. Exam performed in department. Left Ventricle Normal LV size. Left ventricular systolic function is normal. The estimated ejection fraction is 55 %. Normal diastology for age. No regional wall motion abnormalities noted. Right Ventricle Normal RV size. Normal systolic function. Atria Normal left atrium. Normal right atrium. Patent foramen ovale. Mitral Valve Normal mitral valve. Tricuspid Valve Normal tricuspid valve. Mild tricuspid valve insufficiency. Pulmonary artery systolic pressure is 21 mmHg. Aortic Valve Normal aortic valve. Trisinus/trileaflet aortic valve. Pulmonic Valve Normal pulmonic valve. Great Vessels Normal aortic root. The pulmonary artery is normal size. Normal inferior vena cava. Pericardium/Pleural No pericardial effusion. Medication 22 gauge I.V. with prn adaptor inserted into right arm. Performed a rapid injection of agitated mix of 9 cc saline and 1cc air to assess for atrial septal defect. MMode/2D Measurements & Calculations LVIDd: 4.4 cm IVSd: 0.89 cm LVOT diam: 1.9 cm LVIDs: 3.1 cm LVPWd: 0.77 cm RVDd: 3.1 cm FS: 30.3 % LVOT area: 2.8 cm2 Ao root diam: 2.5 cm LAV(MOD-bp): 32.6 ml LVAd ap4: 22.5 cm2 LAV(MOD-bp) Indexed: 19.3 ml/m2 LVLd ap4: 7.9 cm LAV(MOD-sp2): 23.9 ml EDV(MOD-sp4): 53.7 ml LAV(MOD-sp4): 37.2 ml EDV(sp4-el): 53.9 ml LVAs ap4: 13.2 cm2 LVLs ap4: 6.5 cm ESV(MOD-sp4): 22.4 ml ESV(sp4-el): 22.7 ml EF(MOD-sp4): 58.3 % EF(sp4-el): 57.9 % LVAd ap2: 25.7 cm2 SV(MOD-sp4): 31.3 ml SV(MOD-sp2): 40.2 ml LVLd ap2: 8.4 cm EDV(MOD-sp2): 66.4 ml EDV(sp2-el): 66.5 ml LVAs ap2: 14.5 cm2 LVLs ap2: 6.8 cm ESV(MOD-sp2): 26.2 ml ESV(sp2-el): 26.1 ml EF(MOD-sp2): 60.5 % SV(sp4-el): 31.2 ml LA dimension(2D): 3.1 cm LA A4 area: 15.8 cm2 RA A4 area: 11.4 cm2 Time Measurements MV dec time: 0.24 sec Doppler Measurements & Calculations MV E max oscar: 78.4 cm/sec Lat Peak E' Oscar: 20.8 cm/sec Med Peak E' Oscar: 17.1 cm/sec MV A max oscar: 57.2 cm/sec E/E' lat: 3.8 E/E' med: 4.6 MV E/A: 1.4 Ao V2 max: 168.1 cm/sec LV V1 max: 104.8 cm/sec MV dec slope: 327.0 cm/sec2 Ao max P.3 mmHg LV V1 max P.4 mmHg Ao V2 mean: 116.2 cm/sec LV V1 mean P.6 mmHg Ao mean P.2 mmHg LV V1 mean: 75.4 cm/sec Ao V2 VTI: 36.7 cm LV V1 VTI: 23.3 cm AV (velocity ratio): 0.63 ZAINAB(I,D): 1.8 cm2 ZAINAB(V,D): 1.8 cm2 SV(LVOT): 65.9 ml PA V2 max: 94.8 cm/sec TR max oscar: 213.0 cm/sec PA max PG (full): 1.0 mmHg TR max P.1 mmHg ECHO/Echo Complete Interpretation Summary Normal LV size. Left ventricular systolic function is normal. The estimated ejection fraction is 55 %. Patent foramen ovale. Ordering Physician: Devan Garcia Referring Physician: Devan Garcia Performed By: Zeina De RDCS
== END | disposition home or self-care (01) ==
LOC: CVS 09:00
PROVIDERS: PCP Internal Medicine; Referring Provider Internal Medicine; Visit Provider Internal Medicine
DX: R01.1 Cardiac murmur, unspecified (principal)
CPT/HCPCS: 93306

== ENCOUNTER → 2023-06-08 | Outpatient (CLI) | payer OTHER, SELFPAY ==
--- OUTSIDE RECORDS SUMMARY | 2023-06-08 18:14 | XMS RPT_ITS | CCD ---
Author Name Unknown Address [address] [place] [address] [address] [place] [address] Organization [facility] Care Team Providers Care [place] Supervisor Name Role Phone SULY ANGELA PA-C Attending Unavailabl e PHYSICIAN, NONE Primary Care Unavailable MC MONTENEGRO Attending Unavailable PHYSICIAN, NONE Primary Care Unavailable Results Test Name Value Interpretation Reference Range Facil ity Encounters Encounter Date Encounter Type Care Provider Facility Start: 05-18-2022 End: 05-18-2022 ambulatory SULY ANGELA PA-C Facility:A Start: 09-20-2021 End: 09-20-2021 ambulatory MC MONTENEGRO Facility:A Payers Date Payer Category Payer Unknown [id number] 2021 Unknown [id number] 1990 Unknown [id number] 1990 Unknown [id number] Summary Purpose Family History No Family History Records FoundNo Family History Records FoundNo Family History Records Found Advance Directives No Advanced Directives Records FoundNo Advanced Directives Records FoundNo Advanced Directives Records Found Additional Source Comments INFORMATION SOURCE (unrecogn ized section and content) DATE CREATED AUTHOR AUTHOR'S ORGANIZ ATION 09/14/2021 [facility] DATE CREATED AUTHOR AUTHOR'S ORGANIZ ATION 05/19/2022 [facility] ([place]) FOR RECORDS PERTAINING TO PATIENTS WHO ARE OR HAVE BEEN ENROLLED IN A CHEMICAL DEPENDENCY/SUBSTANCEABUSE PROGRAM, SOME INFORMATION MAY BE OMITTED. This clinical summary was aggregated from multiple sources. Caution should be exercised in using it in the provision of clinical care. This summary normalizes information from multiple sources, and as a consequence, information in this document may materially change the coding, format and clinical context of patient data. In addition, data may be omitted in some cases. CLINICAL DECISIONS SHOULD BE BASED ON THE PRIMARY CLINICAL RECORDS. [facility]. provides no warranty or guarantee of the accuracy or completeness of information in this document.
[2023-06-14 14:09] LABS: HPV APTIMA, High Risk Negative (Negative)
== END | disposition home or self-care (01) ==
LOC: LABSPEC 16:48
PROVIDERS: PCP Internal Medicine; Referring Provider Obstetrics & Gynecology; Visit Provider Obstetrics & Gynecology
DX: Z12.4 Encounter for screening for malignant neoplasm of cervix (principal)
CPT/HCPCS: 87624; 88175; G0145

== ENCOUNTER → 2023-07-16 | Outpatient (CLI) | payer OTHER, SELFPAY ==
--- OUTSIDE RECORDS SUMMARY | 2023-07-16 20:58 | XMS RPT_ITS | CCD ---
Author Name Unknown Address [address] [place] [address] Organization [facility] Care Team Providers Care Pharmacists Name Role Phone PAT FUENTES, MELIZA Fang Attending JORDAN Stout MD Primary Care Unavailab Dianna MENDOZA, TOM Attending JORDAN Stout MD Primary Care Unavailab le Results Test Name Value Interpretation Reference Range Facil ity Encounters Encounter Date Encounter Type Care Provider Facility Start: 07-09-2023 End: 07-09-2023 Emergency department patient visit MELIZA STEWART MD Facil ity:A Start: 09-21-2022 End: 09-21-2022 ambulatory TOM YUN PA-C Facility:A Payers Date Payer Category Payer Unknown [id number] 1990 Unknown [id number] 1990 Unknown [id number] Summary Purpose Family History No Family History Records FoundNo Family History Records FoundNo Family History Records Found Advance Directives No Advanced Directives Records FoundNo Advanced Directives Records FoundNo Advanced Directives Records Found Additional Source Comments INFORMATION SOURCE (unrecogn ized section and content) DATE CREATED AUTHOR AUTHOR'S ORGANIZ ATION 09/14/2021 [facility] DATE CREATED AUTHOR AUTHOR'S ORGANIZ ATION 07/10/2023 [facility] ([place]) FOR RECORDS PERTAINING TO PATIENTS WHO ARE [...] BE BASED ON THE PRIMARY CLINICAL RECORDS. [facility] [employer] [facility]. provides no warranty or guarantee of the accuracy or completeness of information in this document.
[2023-07-19 10:09] LABS: Chlamydia By Nucleic Acid AMP Negative (Negative); Gonococcus By Nucleic Acid AMP Negative (Negative)
== END | disposition home or self-care (01) ==
LOC: LABSPEC 15:41
PROVIDERS: PCP Internal Medicine; Referring Provider Obstetrics & Gynecology; Visit Provider Obstetrics & Gynecology
DX: Z34.90 Encounter for supervision of normal pregnancy, unspecified, unspecified trimester (principal); Z3A.00 Weeks of gestation of pregnancy not specified
CPT/HCPCS: 87077; 87086; 87088; 87491; 87591

== ENCOUNTER → 2023-08-06 | Outpatient (CLI) | payer OTHER, SELFPAY ==
[2023-08-06 13:45] LABS: Absolute Lymphocyte Count 2.51 X10^3/uL (0.83-4.51); Absolute Neutrophil Count 7.4 X10^3/uL (2.0-7.7); Basophil# 0.05 X10^3/uL; Basophil% 0.5 % (0-1); Eosinophil# 0.07 X10^3/uL; Eosinophils% 0.7 % (0-5); Hematocrit 36.3 % (37-47); Hemoglobin 12.1 g/dL (12.0-15.0); Lymphocyte # 2.51 X10^3/ul (0.83-4.51); Lymphocyte % 23.7 % (19-41); Mean Corp Hgb Conc 33.3 g/dL (32-36); Mean Corpuscular Hgb 29.3 pg (27.0-32.0); Mean Corpuscular Volume 87.9 fL (81-99); Mean Platelet Vol. 8.7 fl (6.2-12.0); Monocyte# 0.53 X10^3/uL; NRBC Flagged by Analyzer 0 % (0-5); Neutrophil # 7.37 X10^3/uL (2.7-7.7); Neutrophil % 69.7 % (47-70); Platelet Count 339 K/mm3 (150-450); RBC Distribution Width CV 13.2 % (11.6-14.6); RBC Distribution Width SD 42.7 fl (35.1-43.9); Red Blood Count 4.13 M/mm3 (4.2-5.4); White Blood Count 10.6 K/mm3 (4.4-11.0)
[2023-08-06 14:48] LABS: HIV - WCH Non-Reactive (Nonreactive); Hepatitis B Surface Antigen Non-Reactive (Nonreactive); Hepatitis C Antibody Non-Reactive (Nonreactive); Rubella IgG Reactive (Nonreactive); Syphilis Antibodies Non-reactive
== END | disposition home or self-care (01) ==
LOC: LAB 12:58
PROVIDERS: PCP Internal Medicine; Referring Provider Obstetrics & Gynecology; Visit Provider Obstetrics & Gynecology
DX: Z34.81 Encounter for supervision of other normal pregnancy, first trimester (principal); Z3A.00 Weeks of gestation of pregnancy not specified
CPT/HCPCS: 36415; 85025; 86703; 86762; 86780; 86803; 86850; 86900; 86901; 87340

== ENCOUNTER → 2023-12-07 | Outpatient (CLI) | payer OTHER, SELFPAY ==
[2023-12-07 08:07] LABS: Glucose Challenge Gest 1H 50g 135 mg/dL (70-140)
[2023-12-07 08:18] LABS: Absolute Lymphocyte Count 1.89 X10^3/uL (0.83-4.51); Absolute Neutrophil Count 6.3 X10^3/uL (2.0-7.7); Basophil# 0.04 X10^3/uL; Basophil% 0.5 % (0-1); Eosinophil# 0.05 X10^3/uL; Eosinophils% 0.6 % (0-5); Hematocrit 34.7 % (37-47); Hemoglobin 11.2 g/dL (12.0-15.0); Lymphocyte # 1.89 X10^3/ul (0.83-4.51); Lymphocyte % 21.4 % (19-41); Mean Corp Hgb Conc 32.3 g/dL (32-36); Mean Corpuscular Hgb 29.2 pg (27.0-32.0); Mean Corpuscular Volume 90.4 fL (81-99); Mean Platelet Vol. 8.9 fl (6.2-12.0); Monocyte# 0.44 X10^3/uL; NRBC Flagged by Analyzer 0 % (0-5); Neutrophil # 6.34 X10^3/uL (2.7-7.7); Neutrophil % 71.8 % (47-70); Platelet Count 251 K/mm3 (150-450); RBC Distribution Width CV 13.1 % (11.6-14.6); RBC Distribution Width SD 42.5 fl (35.1-43.9); Red Blood Count 3.84 M/mm3 (4.2-5.4); White Blood Count 8.8 K/mm3 (4.4-11.0)
[2023-12-07 08:40] LABS: HIV - WCH Non-Reactive (Nonreactive); Syphilis Antibodies Non-reactive
== END | disposition home or self-care (01) ==
LOC: LAB 07:41
PROVIDERS: PCP Internal Medicine; Referring Provider Obstetrics & Gynecology; Visit Provider Obstetrics & Gynecology
DX: O09.90 Supervision of high risk pregnancy, unspecified, unspecified trimester (principal); B95.1 Streptococcus, group B, as the cause of diseases classified elsewhere; Z82.79 Family history of other congenital malformations, deformations and chromosomal abnormalities; Z3A.24 24 weeks gestation of pregnancy; Z13.1 Encounter for screening for diabetes mellitus
CPT/HCPCS: 82950; 85025; 86703; 86780

== ENCOUNTER → 2023-12-17 | Outpatient (CLI) | payer OTHER, SELFPAY ==
[2023-12-17 10:32] LABS: Glucose GTT-Gestation. Fasting 83 mg/dL (<105)
[2023-12-17 10:50] LABS: Glucose GTT-Gestational 1 Hr 142 mg/dL (<190)
[2023-12-17 12:02] LABS: Glucose GTT-Gestational 2 Hr 121 mg/dL (<165)
[2023-12-17 13:10] LABS: Glucose GTT-Gestational 3 Hr 99 L (<145)
== END | disposition home or self-care (01) ==
LOC: LAB 09:11
PROVIDERS: PCP Internal Medicine; Referring Provider Obstetrics & Gynecology; Visit Provider Obstetrics & Gynecology
DX: O99.810 Abnormal glucose complicating pregnancy (principal)
CPT/HCPCS: 82951; 82952

== ENCOUNTER → 2024-01-25 | Outpatient (CLI) | payer OTHER, SELFPAY ==
[2024-01-25 15:22] LABS: Hematocrit 36.1 % (37-47); Hemoglobin 11.8 g/dL (12.0-15.0); Mean Corp Hgb Conc 32.7 g/dL (32-36); Mean Corpuscular Hgb 29.6 pg (27.0-32.0); Mean Corpuscular Volume 90.5 fL (81-99); Mean Platelet Vol. 9.4 fl (6.2-12.0); Platelet Count 272 K/mm3 (150-450); RBC Distribution Width CV 13.2 % (11.6-14.6); RBC Distribution Width SD 43.8 fl (35.1-43.9); Red Blood Count 3.99 M/mm3 (4.2-5.4); White Blood Count 10.2 K/mm3 (4.4-11.0)
[2024-01-25 15:56] LABS: ALB/GLOB Ratio 0.7 RATIO (0.9-2.4); AST(SGOT) 9 U/L (15-37); Alanine Aminotransfer ALT/SGPT 14 U/L (13-56); Albumin, Serum 2.8 g/dL (3.2-5.0); Alkaline Phosphatase 98 U/L (45-117); Anion Gap 4 (5-15); BUN 8 mg/dL (7-18); BUN/Creat Ratio 12.6 RATIO (10-20); Calcium,Total 9.3 mg/dL (8.5-10.1); Chloride 106 mmol/L (98-107); Creatinine, Serum 0.64 mg/dL (0.55-1.02); EST Glomerular Filtration Rate 115 mL/min (>60); Est Glom Filt Rate - Afr Amer 139 mL/min (>60); Globulin 4.3 g/dL (2.2-4.2); Glucose 112 mg/dL (74-106); LDH 146 U/L (84-246); Potassium 3.8 mmol/L (3.5-5.1); Protein, Total 7.1 g/dL (6.4-8.2); Sodium Level 136 mmol/L (136-145); Uric Acid 4.1 mg/dL (2.6-6.0)
== END | disposition home or self-care (01) ==
LOC: LAB 14:16
PROVIDERS: PCP Internal Medicine; Referring Provider Obstetrics & Gynecology; Visit Provider Obstetrics & Gynecology
DX: O99.891 Other specified diseases and conditions complicating pregnancy (principal); R51.9 Headache, unspecified; R60.9 Edema, unspecified; Z3A.00 Weeks of gestation of pregnancy not specified
CPT/HCPCS: 36415; 80053; 83615; 84550; 85027

== ENCOUNTER → 2024-02-01 | Outpatient (CLI) | payer OTHER, SELFPAY ==
[2024-02-01 17:03] LABS: ROM Internal Control Test YES-OK TO RESULT pt. (Internal QC); ROM Patient Test Negative (Negative)
[2024-02-01 17:04] LABS: Record Kit Lot#, ROM+ K1660
== END | disposition home or self-care (01) ==
PROVIDERS: PCP Internal Medicine; Referring Provider Obstetrics & Gynecology; Visit Provider Obstetrics & Gynecology
DX: O26.899 Other specified pregnancy related conditions, unspecified trimester (principal); N89.8 Other specified noninflammatory disorders of vagina; Z3A.00 Weeks of gestation of pregnancy not specified; O99.891 Other specified diseases and conditions complicating pregnancy
CPT/HCPCS: 84112

== ENCOUNTER 2024-02-13 23:10 | Outpatient (CLI) | payer OTHER, SELFPAY ==
--- NOTE | 2024-02-13 23:23 | OB.TRI.HP_ITS ---
HPI - General HPI Narrative NELSON PERRY, is a 33 y/o @ 37 weeks 6 days who presents [facility] for contractions. She denied loss of fluid, vaginal bleeding, or decreased movement. Maternal Data Information ANNA Calculator Estimated Delivery Date Method Current WG Current Estimate 02/29/24 LMP (Certain) 38w 4d Other Estimates 02/29/24 Ultrasound #1 38w 4d PFSH PFSH Medical History Murmur Seasonal allergies Vaginal delivery COVID-19 virus RNA test result positive at limit of detection Home Medications ?Medication ?Instructions ?Recorded ?Last Taken ?Type multivitamin no.47-iron fum 27 1 cap PO QHS 07/10/23 02/13/24 20:30 History mg-folate no.1 1 mg-dha 300 mg capsule (PNV-DHA) Allergy/AdvReac Type Severity Reaction Status Date / Time sulfamethoxazole (From Allergy Intermediate Hives Verified 02/15/24 15:46 Bactrim) trimethoprim (From Bactrim) Allergy Intermediate Hives Verified 02/15/24 15:46 Family History Grandfather Heart disease Myocardial infarction Cancer Bone Alcoholism Brother ADHD Mother Narcolepsy Asthma Severe allergy Grandmother COPD (chronic obstructive pulmonary disease) Autoimmune disorder Respiratory disease Daughter Hypoplastic left heart syndrome of fetus affecting management of mother Son FH: defects Asthma Daughter FH: defects Asthma Father Hypertension Surgical History History of repair of ACL H/O wisdom tooth extraction (~2008) H/O reconstruction of anterior cruciate ligament tear (~2007) Social History adopted: No household members: spouse and children housing: house number of children: 2 current occupational status: employed current occupation: [employer] current occupational exposures/hazards: No pets and animals: Yes pets and animals: dog(s) history of recent travel: Yes ([place]- 06/23-06/30) out of state: Yes out of [place] untry: No sexually active: Yes Smoking Status: Never smoker second hand exposure: No alcohol intake: never substance use type: does not use well-balanced diet: daily or most days caffeine: Yes Type: carbonated beverages Number of servings: 1 and tea Number of servings: 1 eating out: 1-3 times/week during the past year weight has: decreased > 10 lbs what type of physical activity do you participate in: walking frequency: 3-4 times per week duration: 30-45 minutes/day tammie/temple: None seatbelt use: always do you feel safe at home: Yes additional social history: - [place] History 4 Elective abortions 1 Hx Para 2 Spontaneous abortions Hx # Term Pregnancies Ectopic pregnancies Hx # Pregnancies Multiple births # of living children 2 Past Pregnancies Del. 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 Uncomplicated Delivery Date: 12/31/21 Last Updated by: Dee Dee Kahn see problem list for complications, and IOL 40 COVID pos at delivery, GARY Lechuga. Visit Details Expected Delivery Route/Plan Labor Preferences- CB/BF classes: [] labor support person: [] labor intervention preferences: [] pain management options preferred: [] cut cord/dad catch: [] : [] PP control planned: [] discussed possible routes of delivery and associated risks: [] special requests: [] Plans Covid status: [] Flu vaccine: [] Tdap vaccine: given Rhogam: na LARC form signed: declined Problem list reviewed and updated with the most current plan of care details and appropriate orders placed. Relevant counseling for the gestational age provided. Continue routine care and follow up unless otherwise noted in visit notes/problem list details OB Flowsheet Initial Weight: Not Recorded Date -?-?-?-?-?-?-?-?-?-?-?-?- EGA Weight BP Urine Prot -?-?-?-?-?-?-?-?-?-?-?-?- Glucose FHR FuHt Pres Dilation -?-?-?-?-?-?-?-?-?-?-?-?- Effaced St Visit Note 07/16/23 -?-?-?-?-?-?-?-?-?-?-?-?- 7w 3d 143 lb 6 oz 110/70 -?-?-?-?-?-?-?-?-?-?-?-?- 144 -?-?-?-?-?-?-?-?-?-?-?-?- JV- CRL consiste nt with LMP. large SHARON vs resolving twin. ordering formal scan. 08/17/23 -?-?-?-?-?-?-?-?-?-?-?-?- 12w 0d 147 lb 8 oz 113/75 Nega tive -?-?-?-?-?-?-?-?-?-?-?-?- Negative 165 -?-?-?-?-?-?-?-?-?-?-?-?- JV- SHARON is no lo nger present. pt is feeling better. 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 09/14/23 -?-?-?-?-?-?-?-?-?-?-?-?- 16w 0d 149 lb 8 oz 123/74 Nega tive -?-?-?-?-?-?-?-?-?-?-?-?- Negative 144 -?-?-?-?-?-?-?-?-?-?-?-?- JV- afia is john rned that she is not feeling the baby move yet. She has some headaches and left lower quadrant discomfort. bedside scan performed and baby kicked and she felt it. recommend tylenol. SUspect could be a low lying placenta. ultrasound is in 2 weeks. 10/12/23 -?-?-?-?-?-?-?-?-?-?-?-?- 20w 0d 154 lb 8 oz 119/80 Nega tive -?-?-?-?-?-?-?-?-?-?-?-?- Negative 145 20 -?-?-?-?-?-?-?-?-?-?-?-?- SM- no vb lof so me fm no regular ctx 11/09/23 -?-?-?-?-?-?--?-?-?-?-?-?- 24w 0d 160 lb 2 oz 107/72 Nega tive -?-?-?-?-?-?-?-?-?-?-?-?- Negative 145 24 -?-?-?-?-?-?-?-?-?-?-?-?- SM- co irregular cramping on the right side. no vb lof good fm 12/07/23 -?-?-?-?-?-?-?-?-?-?-?-?- 28w 0d 166 lb 122/78 Negative -?-?-?-?-?-?-?-?-?-?-?-?- Negative 136 29 -?-?-?-?-?-?-?-?-?-?-?-?- JV- no lof, vagi nal bleeding, or dec fm. complains of sciatic and pubic pain, irregular carlitos rodriguez constractions. failed 1 hr. 3 hr ordered. ordering pelvic floor pt. encourage compression stockings and fluids. call if becomes more frequent (had 3 BH contractions last night) 12/21/23 -?-?-?-?-?-?-?-?-?-?-?-?- 30w 0d 169 lb 117/71 Negative -?-?-?-?-?-?-?-?-?-?-?-?- Negative 135 31 -?-?-?-?-?-?-?-?-?-?-?-?- JV- has some con cerns about heart fluttering and causing a shortness of her breath periodically. This is not associated with chest pain. has 2nd echo scheduled for 32 weeks. [facility]. passed her 3 hr. 01/04/24 -?-?-?-?-?-?-?-?-?-?-?-?- 32w 0d 173 lb 129/73 Negative -?-?-?-?-?-?-?-?-?-?-?-?- Negative 125 32 -?-?-?-?-?-?-?-?-?-?-?-?- SM- no vb lof go od fm no regular ctx SM- no vb lof good fm no reg ular ctx, starting PFPT for pelvic pain 01/25/24 -?-?-?-?-?-?-?-?-?-?-?-?- 35w 0d 177 lb 2 oz 113/73 Nega tive -?-?-?-?-?-?-?-?-?-?-?-?- Negative 134 36 Cephalic -?-?-?-?-?-?-?-?-?-?-?-?- JV- pt complains of headaches and some visual changes. suspect low bp not high but will get PIH labs. vtx on us today 02/01/24 -?-?-?-?-?-?-?-?-?-?-?-?- 36w 0d 178 lb 125/85 Negative -?-?-?-?-?-?-?-?-?-?-?-?- Negative 120 36 Cephalic 0 -?-?-?-?-?-?-?-?-?-?-?-?- JV- pt felt a la rge amount of fluid at work a few days ago. rom plus collected. she is gbs pos. 02/08/24 -?-?-?-?-?-?-?-?-?-?-?-?- 37w 0d 182 lb 123/75 Trace -?-?-?-?-?-?-?-?-?-?-?-?- Negative 130 37 Cephalic 1 -?-?-?-?-?-?-?-?-?-?-?-?- Sm- no vb lof go od fm no regular ctx 02/15/24 -?-?-?-?-?-?-?-?-?-?-?-?- 38w 0d 181 lb 101/71 Negative -?-?-?-?-?-?-?-?-?-?-?-?- Negative 120 38 Cephalic 1 .5 -?-?-?-?-?-?-?-?-?--?-?-?- 50 -2 SM- no vb irreuglar ctx no lof ROS Constitutional Constitutional: Reports systems reviewed and no addt'l complaints, except as documented Gastrointestinal Gastrointestinal: Denies bloating, constipation, cramping, diarrhea, nausea or vomiting Genitourinary Genitourinary: Reports other Details: Denies vaginal odor, vaginal bleeding, or vaginal discharge ; Denies difficulty urinating or flank pain NST FHR Rate Baby A Baseline: 120 Variability:: Moderate Accelerations:: 15 x 15 Decelerations:: None NST Reactive:: Yes FHR Category:: Category I Assessment & Plan (1) False labor after 37 weeks of gestation without delivery: (2) Supervision of high-risk : COMMENT: PRR, , ANNA 02/29/24,girl PC Alexandrea Tapia, [place], patient prefers doc only for delivery and medical report reviews PLAN: Plan the cervix was unchanged after 84 minutes total on the monitor ok to dc to home . NST reactive Charges/Coding Multi Select Codes Urinary/Genital Urinary/Genital CPT Codes: 36490-41 non-stress test Interp
[2024-02-13 23:29] VITALS: BP 122/67; PULSE 85; O2SAT 96; BMI 33.7
[2024-02-13 23:32] VITALS: RESP 20; TEMP 37.1
[2024-02-14] VITALS (9 sets, daily range): PULSE 78–90; O2SAT 98–99
== END 2024-02-14 00:55 | disposition home or self-care (01) ==
LOC: WPOUT 23:17 → WP 23:18
PROVIDERS: PCP Internal Medicine; Visit Provider Obstetrics & Gynecology
DX: O47.1 False labor at or after 37 completed weeks of gestation (principal); O09.93 Supervision of high risk pregnancy, unspecified, third trimester; Z3A.37 37 weeks gestation of pregnancy
CPT/HCPCS: 59025; 59050; 99221; G0378

== ENCOUNTER 2024-02-22 15:07 | Inpatient (IN) | payer OTHER, SELFPAY ==
[2024-02-22] VITALS (72 sets, daily range): BP systolic 96–139; BP diastolic 54–84; PULSE 27–95; RESP 16–18; TEMP 36.4–36.8; O2SAT 87–100; BMI 33.5
[2024-02-22] MEDS: Lactated Ringers 1,000 ML 50 ML IV (15:40)
[2024-02-22] MEDS: Penicillin G Pot 5,000,000 UNITS in 0.9% Normal Saline (100mL MB+) 100 ML 150 UNITS IV (15:45)
[2024-02-22] MEDS: Oxytocin 15 Units/NS 250ml 15 UNITS/250 ML IV.SOLN 2 UNITS IV (15:55)
[2024-02-22 15:57] LABS: Absolute Lymphocyte Count 2.53 X10^3/uL (0.83-4.51); Absolute Neutrophil Count 7.2 X10^3/uL (2.0-7.7); Basophil# 0.03 X10^3/uL; Basophil% 0.3 % (0-1); Eosinophil# 0.06 X10^3/uL; Eosinophils% 0.6 % (0-5); Hematocrit 35.8 % (37-47); Hemoglobin 12.3 g/dL (12.0-15.0); Lymphocyte # 2.53 X10^3/ul (0.83-4.51); Lymphocyte % 24.2 % (19-41); Mean Corp Hgb Conc 34.4 g/dL (32-36); Mean Corpuscular Hgb 30.9 pg (27.0-32.0); Mean Corpuscular Volume 89.9 fL (81-99); Mean Platelet Vol. 9.5 fl (6.2-12.0); Monocyte# 0.64 X10^3/uL; Monocyte% 6.1 % (0-10); NRBC Flagged by Analyzer 0 % (0-5); Neutrophil # 7.15 X10^3/uL (2.7-7.7); Neutrophil % 68.2 % (47-70); Platelet Count 262 K/mm3 (150-450); RBC Distribution Width CV 13.5 % (11.6-14.6); Red Blood Count 3.98 M/mm3 (4.2-5.4); White Blood Count 10.5 K/mm3 (4.4-11.0)
[2024-02-22 16:45] LABS: Syphilis Antibodies Non-reactive
[2024-02-22] MEDS: 0.9% Saline Lock 10 ML Syringe 50 ML IV (17:18)
--- NOTE | 2024-02-22 17:45 | NURSING ---
fluid bolus ran from primary bag of LR
[2024-02-22] MEDS: fentaNYL-bupivacaine (epidural) 100 ML BAG EPIDURAL (18:45)
[2024-02-22] MEDS: Penicillin G 3,000,000 Units 50 ML 100 UNITS IV (20:51)
--- NOTE | 2024-02-22 21:33 | HP.PCM.OB_ITS ---
HPI - General General Date of Admission: 02/22/24 HPI Narrative NELSON PERRY, is a 33 F who presents for IOL secondary to history of previous child with an anomaly and pubic symphysis pain. no vb lof good fm no regular ctx. Maternal Data Information ANNA Calculator Estimated Delivery Date Method Current WG Current Estimate 02/29/24 LMP (Certain) 39w 0d Other Estimates 02/29/24 Ultrasound #1 39w 0d PFSH PFSH Medical History (Updated 02/22/24 @ 16:14 by Eduardo Castaneda) Stillborn, normal Murmur Seasonal allergies Vaginal delivery COVID-19 virus RNA test result positive at limit of detection Home Medications ?Medication ?Instructions ?Recorded ?Last Taken ?Type multivitamin no.47-iron fum 27 1 cap PO QHS 07/10/23 02/21/24 20:00 History mg-folate no.1 1 mg-dha 300 mg capsule (PNV-DHA) Allergy/AdvReac Type Severity Reaction Status Date / Time sulfamethoxazole (From Allergy Intermediate Hives Verified 02/22/24 16:17 Bactrim) trimethoprim (From Bactrim) Allergy Intermediate Hives Verified 02/22/24 16:17 Family History Grandfather Heart disease Myocardial infarction Cancer Bone Alcoholism Brother ADHD Mother Narcolepsy Asthma Severe allergy Grandmother COPD (chronic obstructive pulmonary disease) Autoimmune disorder Respiratory disease Daughter Hypoplastic left heart syndrome of fetus affecting management of mother Son FH: defects Asthma Daughter FH: defects Asthma Father Hypertension Surgical History History of repair of ACL H/O wisdom tooth extraction (~2008) H/O reconstruction of anterior cruciate ligament tear (~2007) Social History adopted: No household members: spouse and children housing: house number of children: 2 current occupational status: employed current occupation: [employer] current occupational exposures/hazards: No pets and animals: Yes pets and animals: dog(s) history of recent travel: Yes ([facility]- 06/23-06/30) out of state: Yes out of country: No sexually active: Yes Smoking Status: Never smoker second hand exposure: No alcohol intake: never substance use type: does not use well-balanced diet: daily or most days caffeine: Yes Type: carbonated beverages Number of servings: 1 and tea Number of servings: 1 eating out: 1-3 times/week during the past year weight has: decreased > 10 lbs what type of physical activity do you participate in: walking frequency: 3-4 times per week duration: 30-45 minutes/day tammie/latter day: None seatbelt use: always do you feel safe at home: Yes additional social history: - [place] History 4 Elective abortions 1 Hx Para 2 Spontaneous abortions Hx # Term Pregnancies Ectopic pregnancies Hx # Pregnancies Multiple births # of living children 2 Past Pregnancies Del. 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 Uncomplicated Delivery Date: 12/31/21 Last Updated by: Dee Dee Kahn see problem list for complications, and IOL 40 COVID pos at delivery, GARY Lechuga. Visit Details Expected Delivery Route/Plan Labor Preferences- CB/BF classes: [] labor support person: [] labor intervention preferences: [] pain management options preferred: [] cut cord/dad catch: [] : [] PP control planned: [] discussed possible routes of delivery and associated risks: [] special requests: [] Plans Covid status: [] Flu vaccine: [] Tdap vaccine: given Rhogam: na LARC form signed: declined Problem list reviewed and updated with the most current plan of care details and appropriate orders placed. Relevant counseling for the gestational age provided. Continue routine care and follow up unless otherwise noted in visit notes/problem list details OB Flowsheet Initial Weight: Not Recorded Date -?-?-?-?-?-?-?-?-?-?-?-?- EGA Weight BP Urine Prot -?-?-?-?-?-?-?-?-?-?-?-?- Glucose FHR FuHt Pres Dilation -?-?-?-?--?-?-?-?-?-?-?-?- Effaced St Visit Note 07/16/23 -?-?-?-?-?-?-?-?-?-?-?-?- 7w 3d 143 lb 6 oz 110/70 -?-?-?-?-?-?-?-?-?-?-?-?- 144 -?-?-?-?-?-?-?-?-?-?-?-?- JV- CRL consiste nt with LMP. large SHARON vs resolving twin. ordering formal scan. 08/17/23 -?-?-?-?-?-?-?-?-?-?-?-?- 12w 0d 147 lb 8 oz 113/75 Nega tive -?-?-?-?-?-?-?-?-?-?-?-?- Negative 165 -?-?-?-?-?-?-?-?-?-?-?-?- JV- SHARON is no lo nger present. pt is feeling better. 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 09/14/23 -?-?-?-?-?-?-?-?-?-?-?-?- 16w 0d 149 lb 8 oz 123/74 Nega tive -?-?-?-?-?-?-?-?-?-?-?-?- Negative 144 -?-?-?-?-?-?-?-?-?-?-?-?- JV- afia is john rned that she is not feeling the baby move yet. She has some headaches and left lower quadrant discomfort. bedside scan performed and baby kicked and she felt it. recommend tylenol. SUspect could be a low lying placenta. ultrasound is in 2 weeks. 10/12/23 -?-?-?-?-?-?-?-?-?-?-?-?- 20w 0d 154 lb 8 oz 119/80 Nega tive -?-?-?-?-?-?-?-?-?-?-?-?- Negative 145 20 -?-?--?-?-?-?-?-?-?-?-?-?- SM- no vb lof so me fm no regular ctx 11/09/23 -?-?-?-?-?-?-?-?-?-?-?-?- 24w 0d 160 lb 2 oz 107/72 Nega tive -?-?-?-?-?-?-?-?-?-?-?-?- Negative 145 24 -?-?-?-?-?-?-?-?-?-?-?-?- SM- co irregular cramping on the right side. no vb lof good fm 12/07/23 -?-?-?-?-?-?-?-?-?-?-?-?- 28w 0d 166 lb 122/78 Negative -?-?-?-?-?-?-?-?-?-?-?-?- Negative 136 29 -?-?-?-?-?-?-?-?-?-?-?-?- JV- no lof, vagi nal bleeding, or dec fm. complains of sciatic and pubic pain, irregular carlitos rodriguez constractions. failed 1 hr. 3 hr ordered. ordering pelvic floor pt. encourage compression stockings and fluids. call if becomes more frequent (had 3 BH contractions last night) 12/21/23 -?-?-?-?-?-?-?-?-?-?-?-?- 30w 0d 169 lb 117/71 Negative -?-?-?-?-?-?-?-?-?-?-?-?- Negative 135 31 -?-?-?-?-?-?-?-?-?-?-?-?- JV- has some con cerns about heart fluttering and causing a shortness of her breath periodically. This is not associated with chest pain. has 2nd echo scheduled for 32 weeks. [facility] be [facility]. passed her 3 hr. 01/04/24 -?-?-?-?-?-?-?-?-?-?-?-?- 32w 0d 173 lb 129/73 Negative -?-?-?-?-?-?-?-?-?-?-?-?- Negative 125 32 -?-?-?-?-?-?-?-?-?-?-?-?- SM- no vb lof go od fm no regular ctx SM- no vb lof good fm no reg ular ctx, starting PFPT for pelvic pain 01/25/24 -?-?-?-?-?-?-?-?-?-?-?-?- 35w 0d 177 lb 2 oz 113/73 Nega tive -?-?-?-?-?-?-?-?-?-?-?-?- Negative 134 36 Cephalic -?-?-?-?-?-?-?-?-?-?-?-?- JV- pt complains of headaches and some visual changes. suspect low bp not high but will get PIH labs. vtx on us today 02/01/24 -?-?-?-?-?-?-?-?-?-?-?-?- 36w 0d 178 lb 125/85 Negative -?-?-?-?-?-?-?-?-?-?-?-?- Negative 120 36 Cephalic 0 -?-?-?-?-?-?-?-?-?-?-?-?- JV- pt felt a la rge amount of fluid at work a few days ago. rom plus collected. she is gbs pos. 02/08/24 -?-?-?-?-?-?-?-?-?-?-?-?- 37w 0d 182 lb 123/75 Trace -?-?-?-?-?-?-?-?-?-?-?-?- Negative 130 37 Cephalic 1 -?-?-?-?-?-?-?-?-?-?-?-?- Sm- no vb lof go od fm no regular ctx 02/15/24 -?-?-?-?-?-?-?-?-?-?-?-?- 38w 0d 181 lb 101/71 Negative -?-?-?-?-?-?-?-?-?-?-?-?- Negative 120 38 Cephalic 1 .5 -?-?-?-?-?-?-?-?-?-?-?-?- 50 -2 SM- no vb irreuglar ctx no lof NST FHR Rate Baby A Baseline: 130 Variability:: Moderate Accelerations:: 15 x 15 Decelerations:: None NST Reactive:: Yes FHR Category:: Category I Uterine Activity:: irregular ROS Constitutional Constitutional: Reports systems reviewed and no addt'l complaints, except as documented Eyes Eyes: Denies change in vision ENT HEENT: Reports systems reviewed and no addt'l complaints, except as documented; Denies headache(s) Cardiovascular Cardiovascular: Reports systems reviewed and no addt'l complaints, except as documented; Denies chest pain or dyspnea Respiratory/Chest Respiratory/Chest: Reports systems reviewed and no addt'l complaints, except as documented Gastrointestinal Gastrointestinal: Reports systems reviewed and no addt'l complaints, except as documented; Denies abdominal pain Genitourinary Genitourinary: Reports systems reviewed and no addt'l complaints, except as documented, contractions Details: present (irregular) and movement Details: present; Denies dysuria or genital lesions Musculoskeletal Musculoskeletal: Reports systems reviewed and no addt'l complaints, except as documented Neurologic Neurologic: Reports systems reviewed and no addt'l complaints, except as documented Endocrine Endocrinology: Reports systems reviewed and no addt'l complaints, except as documented Vital Signs Vital Signs Vital Signs: 02/22/24 15:19 02/22/24 15:19 02/22/24 15:19 Temperature Temperature Source Temporal Pulse Rate 81 Respiratory Rate Blood Pressure 119/74 BP Systolic 119 BP Diastolic 74 Pulse Ox 02/22/24 15:19 02/22/24 15:19 02/22/24 15:19 Temperature Temperature Source Pulse Rate 83 Respiratory Rate 16 Blood Pressure 119/74 BP Systolic 119 BP Diastolic 74 Pulse Ox 02/22/24 15:19 02/22/24 15:19 02/22/24 15:20 Temperature 98.0 F Temperature Source Pulse Rate 27 L Respiratory Rate Blood Pressure BP Systolic BP Diastolic Pulse Ox 98 02/22/24 15:20 02/22/24 16:39 02/22/24 16:39 Temperature Temperature Source Pulse Rate 84 Respiratory Rate Blood Pressure 119/73 BP Systolic 119 BP Diastolic 73 Pulse Ox 87 02/22/24 16:39 02/22/24 16:39 02/22/24 16:39 Temperature 98.0 F Temperature Source Temporal Pulse Rate Respiratory Rate 16 Blood Pressure BP Systolic BP Diastolic Pulse Ox 02/22/24 16:40 02/22/24 16:40 02/22/24 18:19 Temperature Temperature Source Pulse Rate 85 Respiratory Rate Blood Pressure 134/80 H BP Systolic 134 BP Diastolic 80 Pulse Ox 96 02/22/24 18:19 02/22/24 18:20 02/22/24 18:20 Temperature Temperature Source Pulse Rate 77 82 Respiratory Rate Blood Pressure BP Systolic BP Diastolic Pulse Ox 100 02/22/24 18:25 02/22/24 18:25 02/22/24 18:30 Temperature Temperature Source Pulse Rate 77 86 Respiratory Rate Blood Pressure BP Systolic BP Diastolic Pulse Ox 100 02/22/24 18:30 02/22/24 18:32 02/22/24 18:32 Temperature Temperature Source Pulse Rate 84 Respiratory Rate Blood Pressure BP Systolic BP Diastolic Pulse Ox 99 93 02/22/24 18:34 02/22/24 18:34 02/22/24 18:34 Temperature Temperature Source Pulse Rate 90 Respiratory Rate 16 Blood Pressure 128/75 H BP Systolic 128 BP Diastolic 75 Pulse Ox 02/22/24 18:35 02/22/24 18:35 02/22/24 18:39 Temperature Temperature Source Pulse Rate 82 Respiratory Rate Blood Pressure 131/72 H BP Systolic 131 BP Diastolic 72 Pulse Ox 100 02/22/24 18:39 02/22/24 18:39 02/22/24 18:40 Temperature Temperature Source Pulse Rate 84 Respiratory Rate 16 Blood Pressure 130/84 H BP Systolic 130 BP Diastolic 84 Pulse Ox 02/22/24 18:40 02/22/24 18:42 02/22/24 18:42 Temperature Temperature Source Pulse Rate 83 84 Respiratory Rate Blood Pressure BP Systolic BP Diastolic Pulse Ox 100 02/22/24 18:44 02/22/24 18:44 02/22/24 18:44 Temperature Temperature Source Temporal Pulse Rate 77 Respiratory Rate Blood Pressure 122/73 H BP Systolic 122 BP Diastolic 73 Pulse Ox 02/22/24 18:44 02/22/24 18:44 02/22/24 18:47 Temperature 98.2 F Temperature Source Pulse Rate 75 Respiratory Rate 17 Blood Pressure BP Systolic BP Diastolic Pulse Ox 02/22/24 18:47 02/22/24 18:49 02/22/24 18:49 Temperature Temperature Source Pulse Rate 75 Respiratory Rate Blood Pressure 123/75 H BP Systolic 123 BP Diastolic 75 Pulse Ox 99 02/22/24 18:49 02/22/24 18:52 02/22/24 18:52 Temperature Temperature Source Pulse Rate 76 Respiratory Rate 18 Blood Pressure BP Systolic BP Diastolic Pulse Ox 98 02/22/24 18:54 02/22/24 18:54 02/22/24 18:54 Temperature Temperature Source Pulse Rate 74 Respiratory Rate 17 Blood Pressure 125/72 H BP Systolic 125 BP Diastolic 72 Pulse Ox 02/22/24 18:55 02/22/24 18:55 02/22/24 18:57 Temperature Temperature Source Pulse Rate 73 74 Respiratory Rate Blood Pressure 124/67 H BP Systolic 124 BP Diastolic 67 Pulse Ox 02/22/24 18:57 02/22/24 18:59 02/22/24 18:59 Temperature Temperature Source Pulse Rate 72 Respiratory Rate Blood Pressure 122/69 H BP Systolic 122 BP Diastolic 69 Pulse Ox 98 02/22/24 18:59 02/22/24 19:02 02/22/24 19:02 Temperature Temperature Source Pulse Rate 70 Respiratory Rate 16 Blood Pressure BP Systolic BP Diastolic Pulse Ox 98 02/22/24 19:04 02/22/24 19:04 02/22/24 19:04 Temperature Temperature Source Pulse Rate 67 Respiratory Rate 16 Blood Pressure 124/68 H BP Systolic 124 BP Diastolic 68 Pulse Ox 02/22/24 19:07 02/22/24 19:07 02/22/24 19:12 Temperature Temperature Source Pulse Rate 75 71 Respiratory Rate Blood Pressure BP Systolic BP Diastolic Pulse Ox 97 02/22/24 19:12 02/22/24 19:17 02/22/24 19:17 Temperature Temperature Source Pulse Rate 75 Respiratory Rate Blood Pressure BP Systolic BP Diastolic Pulse Ox 97 98 02/22/24 19:17 02/22/24 19:17 02/22/24 19:17 Temperature Temperature Source Temporal Pulse Rate 69 Respiratory Rate Blood Pressure 125/82 H BP Systolic 125 BP Diastolic 82 Pulse Ox 02/22/24 19:17 02/22/24 19:17 02/22/24 19:22 Temperature 98.1 F Temperature Source Pulse Rate 72 Respiratory Rate 16 Blood Pressure BP Systolic BP Diastolic Pulse Ox 02/22/24 19:22 02/22/24 19:27 02/22/24 19:27 Temperature Temperature Source Pulse Rate 78 Respiratory Rate Blood Pressure BP Systolic BP Diastolic Pulse Ox 97 98 02/22/24 19:32 02/22/24 19:32 02/22/24 19:34 Temperature Temperature Source Pulse Rate 78 Respiratory Rate Blood Pressure 118/69 BP Systolic 118 BP Diastolic 69 Pulse Ox 98 02/22/24 19:34 02/22/24 19:37 02/22/24 19:37 Temperature Temperature Source Pulse Rate 71 75 Respiratory Rate Blood Pressure BP Systolic BP Diastolic Pulse Ox 98 02/22/24 19:42 02/22/24 19:42 02/22/24 19:47 Temperature Temperature Source Pulse Rate 81 74 Respiratory Rate Blood Pressure BP Systolic BP Diastolic Pulse Ox 98 02/22/24 19:47 02/22/24 19:52 02/22/24 19:52 Temperature Temperature Source Pulse Rate 95 Respiratory Rate Blood Pressure BP Systolic BP Diastolic Pulse Ox 97 97 02/22/24 19:57 02/22/24 19:57 02/22/24 20:02 Temperature Temperature Source Pulse Rate 76 77 Respiratory Rate Blood Pressure BP Systolic BP Diastolic Pulse Ox 97 02/22/24 20:02 02/22/24 20:07 02/22/24 20:07 Temperature Temperature Source Pulse Rate 81 Respiratory Rate Blood Pressure BP Systolic BP Diastolic Pulse Ox 97 97 02/22/24 20:12 02/22/24 20:12 02/22/24 20:17 Temperature Temperature Source Pulse Rate 70 91 Respiratory Rate Blood Pressure BP Systolic BP Diastolic Pulse Ox 97 02/22/24 20:17 02/22/24 20:36 02/22/24 20:36 Temperature Temperature Source Temporal Pulse Rate Respiratory Rate 16 Blood Pressure BP Systolic BP Diastolic Pulse Ox 98 02/22/24 20:36 02/22/24 20:37 02/22/24 20:37 Temperature 98.3 F Temperature Source Pulse Rate 72 Respiratory Rate Blood Pressure 96/54 L BP Systolic 96 BP Diastolic 54 Pulse Ox 02/22/24 20:37 02/22/24 20:59 02/22/24 20:59 Temperature Temperature Source Pulse Rate 79 Respiratory Rate Blood Pressure BP Systolic BP Diastolic Pulse Ox 97 97 02/22/24 21:00 02/22/24 21:00 02/22/24 21:04 Temperature Temperature Source Pulse Rate 82 74 Respiratory Rate Blood Pressure BP Systolic BP Diastolic Pulse Ox 91 02/22/24 21:04 Temperature Temperature Source Pulse Rate Respiratory Rate Blood Pressure BP Systolic BP Diastolic Pulse Ox 98 Weight Weight: 183 lb Body Mass Index (BMI) 33.5 Physical Exam Const alert, oriented x3, no apparent distress and healthy appearing HEENT normocephalic and moist oral mucous membranes Head and Scalp: atraumatic Neck full ROM, no lymphadenopathy, supple and thyroid normal General: trachea midline Lymph Lymphatic: no lymphadenopathy noted Chest inspection of chest normal Resp normal respiratory effort Cardio regular rate GI normal to inspection, nondistended, normoactive bowel sounds, soft to palpation and non-tender Inspection: gravid external exam normal Manual OB Exam: estimated gestational size appropriate, presentation cephalic, dilated, effaced and station Extremity normal to inspection General Extremity: Negative for edema Skin no rashes or lesions noted Neuro no focal motor deficits and deep tendon reflexes 2+ bilaterally Motor Exam: strength 5/5 throughout and clonus absent Psych mental status grossly normal Labs Labs Labs: Blood Type A POSITIVE Antibody Screen NEGATIVE Hct 35.8 % (37-47) L Hgb 12.3 g/dL (12.0-15.0) Obstetrics Ultrasound Syphilis Total Ab Non-reactive Rubella IgG Antibody Reactive (Nonreactive) Hep Bs Antigen Non-Reactive (Nonreactive) Hepatitis C Antibody Non-Reactive (Nonreactive) Chlamydia DNA (ESTEBAN) Negative (Negative) N.gonorrhoeae DNA (ESTEBAN) Negative (Negative) HIV 1&2 Antibody Non-Reactive (Nonreactive) Glucose 1 Hr 50 gm 135 mg/dL (70-140) Gest Glucose Tolerance MG/DL Rhogam given: No Assessment & Plan (1) : QUALIFIERS: Weeks of gestation: 38 weeks Qualified Code(s): Z3A.38 - 38 weeks gestation of COMMENT: DOC ONLY DELIVERY. normal anatomy, declined ntd and carrier screen. NIPT low risk, gender female (2) Supervision of high-risk : COMMENT: PRR, , ANNA 02/29/24,girl Alexandrea Palomo, [place], patient prefers doc only for delivery and medical report reviews (3) Positive GBS test: COMMENT: in urine first trimester. no need for 36 week swab. will need treated in labor (4) Family history of congenital heart defect: COMMENT: IOL 39 weeks scheduled 02/21 with SM previous child with hypoplastic left heart, echo ordered/normal and will recheck at 32 wk- per patient WNL. Growth US 32 wk: EFW 46%;AC 40% (5) Abnormal glucose affecting : COMMENT: nl 3 hour gtt (6) Pain in symphysis pubis during : PLAN: Plan Patient presents IOL, plan management for with fb pitocin/AROM. Pain management: plans epidural. GBS negative. Management of any complications: none I have reviewed the [facility] and made any clinically relevant updates.
--- NOTE | 2024-02-22 21:35 | EX.PCM.OBRPT ---
Assessment & Plan (1) : QUALIFIERS: Weeks of gestation: 38 weeks Qualified Code(s): Z3A.38 - 38 weeks gestation of COMMENT: DOC ONLY DELIVERY. normal anatomy, declined ntd and carrier screen. NIPT low risk, gender female (2) Supervision of high-risk : COMMENT: PRR, , ANNA 02/29/24,girl PC Alexandrea Tapia, [place], patient prefers doc only for delivery and medical report reviews (3) Positive GBS test: COMMENT: in urine first trimester. no need for 36 week swab. will need treated in labor (4) Family history of congenital heart defect: COMMENT: IOL 39 weeks scheduled 02/21 with previous child with hypoplastic left heart, echo ordered/normal and will recheck at 32 wk- per patient WNL. Growth US 32 wk: EFW 46%;AC 40% (5) Abnormal glucose affecting : COMMENT: nl 3 hour gtt (6) False labor after 37 weeks of gestation without delivery: (7) Vaginal delivery: COMMENT: SM IOL 39 girl Fredis Maternal Data Information ANNA Calculator Estimated Delivery Date Method Current WG Current Estimate 02/29/24 LMP (Certain) 39w 0d Other Estimates 02/29/24 Ultrasound #1 39w 0d Vaginal Delivery Operative Information Date of Procedure: 02/22/24 Pre-Operative Diagnosis: see a/p diagnoses Post-Operative Diagnosis: same Surgery / Procedure Performed: Spontaneous Vaginal Delivery Type of Anesthesia: Epidural Special Medications: none Estimated Blood Loss: 200 Fluids Replaced: crystalloid Findings Description of Procedure: Patient began pushing and delivered the head in the ANA M presentation. The head was delivered atraumatically and a loose nuchal cord ?1 was identified and the infant delivered through without complication. The anterior and posterior shoulders delivered without complication followed by the rest of the and the was placed on the maternal abdomen. Delayed cord clamping was employed for approximately 60 seconds. Cord was clamped and cut and gentle traction was applied to the cord and the placenta delivered spontaneously immediately following it was noted to have a small piece missing on the edge and with manual exploration the remaining cotyledon was noted to be already spontaneously expelling in the ERWIN. sweep of the uterine lining revealed no retained products and bleeding was minimal. betadine wash was used. The perineum and vagina were inspected and noted to have a first degree perineal laceration which was repaired in the usual fashion with 3-0 vicryl rapide. . EBL was 200 cc. Patient and tolerated delivery well. Amniotic Fluid Description: Clear Placental Delivery Description: Spontaneous Placenta Disposition: [facility] Cord Vessel Description: 3 Vessels Cord Entanglement: None Delayed Cord Clamping: Yes Post Vaginal Delivery Medications Given After Delivery: IV Pitocin Episiotomy Description: None Complication Complications: None Procedures Urinary/Genital [id number]: [id number] Vaginal Delivery [facility]
--- NOTE | 2024-02-22 21:38 | DCINST_ITS ---
Discharge Instructions Diet Discharge Diet: No restrictions Activity Discharge Activity: Return to Normal Activity, May Not Drive (while taking narcotic pain medications.) and May Shower May resume sexual activity in: 4-6 weeks Dressing / Incision Call your doctor if your incision/area has: Continuous Slow Oozing, Sudden Increased Bleeding, Increased Pain/ Swelling, Increased Redness and Foul Smelling Discharge Follow Up Care Please Follow Up With: Mell Blackmon MD When: Call [phone] to make an appointment with your doctor in 6 weeks. If you had elevated blood pressure or 4th degree laceration, you will need to be seen in 2 weeks. Test Results: Test results from this visit will be discussed in further detail at your follow- up appointment, if applicable. Discharge Plan Admission Admit Date/Time: 02/22/24 15:07 Attending Provider: Mell Blackmon Primary Care Provider: Devan Garcia Discharge Orders/Prescriptions Prescriptions: No Action PNV-DHA 27 mg iron-1 mg -300 mg capsule 1 cap PO QHS Referrals / Follow Up: Devan Garcia MD [Primary Care Provider] - Disposition Disposition (needs filled in before D/C Order can be placed): Home, Self Care
[2024-02-22] MEDS: Oxytocin 15 Units/NS 250ml 15 UNITS/250 ML IV.SOLN 83 UNITS IV (22:00)
[2024-02-22] MEDS: Naproxen 500 MG Tablet PO (23:38)
[2024-02-23] VITALS (8 sets, daily range): BP systolic 112–124; BP diastolic 65–72; PULSE 69–79; RESP 16–18; TEMP 36.3–36.7; O2SAT 97
[2024-02-23] MEDS: Acetaminophen 500 MG Tablet 1000 MG PO ×3 (02:37→20:31)
[2024-02-23] MEDS: Senna/Docusate Sodium 1 Tablet PO (04:31)
--- NOTE | 2024-02-23 08:20 | PCM.PN.CNM ---
Subjective Subjective Patient doing well without complaints. Tolerating PO. Ambulating and voiding without difficulty. Feeding well. Denies chest pain, shortness of breath, calf pain/swelling, fevers, chills, lightheadedness. Objective Data Objective Data Vital Signs: Vital Signs Temp Pulse Resp BP Pulse Ox 97.9 F 69 16 124/68 H 96 02/23/24 04:36 02/23/24 04:36 02/23/24 04:36 02/23/24 04:36 02/22/24 23:19 Weight: 183 lb Body Mass Index (BMI) 33.5 Intake & Output: Intake and Output for Last 24 Hours 02/21/24 02/22/24 02/23/24 23:59 23:59 23:59 Intake Total 1148.70 / 1148.70 250 / 250 Output Total 200 / 200 950 / 950 Balance 948.70 / 948.70 -700 / -700 Lab / Micro Data 02/22/24 15:40 Labs: Laboratory Results - last 24 hr 02/22/24 15:40: WBC 10.5, RBC 3.98 L, Hgb 12.3, Hct 35.8 L, MCV 89.9, MCH 30.9, MCHC 34.4, RDW Std Deviation 44.0 H, RDW Coeff of Sara 13.5, Plt Count 262, MPV 9.5, Immature Gran % (Auto) 0.600, Neut % (Auto) 68.2, Lymph % (Auto) 24.2, [place] % (Auto) 6.1, Eos % (Auto) 0.6, Baso % (Auto) 0.3, Absolute Neuts (auto) 7.2, Absolute Lymphs (auto) 2.53, Nucleated RBC % 0, Syphilis Total Ab Non-reactive, Blood Type A POSITIVE, Antibody Screen NEGATIVE Physical Exam Const alert Lymph Lymphatic: no lymphadenopathy noted Chest inspection of chest normal Resp normal respiratory effort and normal air movement Cardio regular rate and regular rhythm GI normal to inspection, nondistended, normoactive bowel sounds Uterus Palpation: uterus fundus firm Extremity normal to inspection, full ROM and no calf tenderness Skin no rashes or lesions noted Psych mental status grossly normal Assessment & Plan (1) Vaginal delivery: COMMENT: SM IOL 39 girl Fredis PLAN: s/p PPD # 1 1. routine post delivery care 2. breast feeding- support given 3. rh positive 4. rubella immune 5. plan d/c home tomorrow.
[2024-02-23] MEDS: Naproxen 500 MG Tablet PO ×2 (09:03→17:08)
[2024-02-23] MEDS: Benzocaine/Lanolin/Aloe Vera 85 GM Spray 1 SPRAY TOPICAL (09:04)
[2024-02-24 01:41] VITALS: BP 108/60; PULSE 65; O2SAT 96
[2024-02-24 02:00] VITALS: BP 108/60; PULSE 74; RESP 18; TEMP 36.7; O2SAT 97
[2024-02-24] MEDS: Senna/Docusate Sodium 1 Tablet PO (04:27)
[2024-02-24] MEDS: Naproxen 500 MG Tablet PO (04:28)
--- NOTE | 2024-02-24 07:23 | PCM.PN.CNM ---
Subjective Subjective Patient doing well without complaints. Tolerating PO. Ambulating and voiding without difficulty. Feeding well. Denies chest pain, shortness of breath, calf pain/swelling, fevers, chills, lightheadedness. Objective Data Objective Data Vital Signs: Vital Signs Temp Pulse Resp BP Pulse Ox O2 Del Method 98.0 F 74 18 108/60 97 Room Air 02/24/24 02:00 02/24/24 02:00 02/24/24 02:00 02/24/24 02:00 02/24/24 02:00 02/24/24 02:00 Oxygen Delivery Method Room Air Weight: 183 lb Body Mass Index (BMI) 33.5 Intake & Output: Intake and Output for Last 24 Hours 02/22/24 02/23/24 02/24/24 23:59 23:59 23:59 Intake Total 1148.70 / 1148.70 250 / 250 Output Total 200 / 200 950 / 950 Balance 948.70 / 948.70 -700 / -700 Lab / Micro Data 02/22/24 15:40 Physical Exam Const alert Lymph Lymphatic: no lymphadenopathy noted Chest inspection of chest normal Resp normal respiratory effort and normal air movement Cardio regular rate and regular rhythm GI normal to inspection, nondistended, normoactive bowel sounds Uterus Palpation: uterus fundus firm Extremity normal to inspection, full ROM and no calf tenderness Skin no rashes or lesions noted Psych mental status grossly normal Assessment & Plan (1) Vaginal delivery: COMMENT: IOL 39 girl Fredis PLAN: s/p PPD # 1 1. routine post delivery care 2. breast feeding- support given 3. rh positive 4. rubella immune 5. d/c home today
[2024-02-24] MEDS: Acetaminophen 500 MG Tablet 1000 MG PO (07:37)
[2024-02-24 07:44] VITALS: BP 119/79; PULSE 61; PULSE 63; RESP 16; TEMP 37; O2SAT 98
--- NOTE | 2024-02-24 08:16 | NURSING ---
Reviewed and agreed with Amy TABULATING CLERK charting.
--- NOTE | 2024-02-29 14:33 | NURSING ---
Follow up phone call made, no answer, voicemail left
== END 2024-02-24 08:38 | disposition home or self-care (01) | DRG 807 ==
PROVIDERS: Admitting Provider Obstetrics & Gynecology; PCP Internal Medicine; Referring Provider Obstetrics & Gynecology; Visit Provider Obstetrics & Gynecology
DX: O26.893 Other specified pregnancy related conditions, third trimester (principal); Z37.0 Single live birth; O69.81X0 Labor and delivery complicated by cord around neck, without compression, not applicable or unspecified; R10.2 Pelvic and perineal pain; O70.0 First degree perineal laceration during delivery; O99.824 Streptococcus B carrier state complicating childbirth; Z3A.38 38 weeks gestation of pregnancy
CPT/HCPCS: 59025; 59050; 85025; 86780; 86850; 86900; 86901; 99221; J7120; A4216; G0378